=== PATIENT | female | born 1950 | race Caucasian/White ===

== ENCOUNTER 2021-11-06 12:08 | Outpatient (CLI) | payer OTHER, SELFPAY ==
--- NOTE | ~2021-11-06 | XR_ITS ---
XR ankle RT min 3V DATE: 11/06/2021 12:32 INDICATION: Displaced fracture of lateral malleolus TECHNIQUE: 4 views COMPARISON: 09/24/2021 right ankle FINDINGS: Small likely old or subacute cortical avulsion fracture fragments at the tip of the lateral malleolus versus ununited accessory ossification centers. No recent fracture or dislocation of the ankle or disruption of the ankle mortise is detected. Prominent plantar and posterior calcaneal enthesopathy without associated erosive change or periostit is. IMPRESSION: Probable subacute or old small cortical avulsion fracture tip of lateral malleolus Reviewed, dictated and finalized at location A. IMPRESSION: Probable subacute or old small cortical avulsion fracture tip of la teral malleolus
== END 2021-11-06 12:09 | disposition home or self-care (01) ==
LOC: ANHIMG 12:18
PROVIDERS: PCP Hospitalist; Visit Provider Orthopaedic Surgery
DX: S82.61XA Displaced fracture of lateral malleolus of right fibula, initial encounter for closed fracture (principal)
CPT/HCPCS: 73610

== ENCOUNTER 2023-10-06 09:27 | Outpatient (CLI) | payer MEDICARE, OTHER, SELFPAY ==
--- NOTE | 2023-10-06 09:30 | ECG_ITS ---
Test Date: 2023-10-06 09:54:33 Measurements Intervals [place] Rate: 81 P: 157 WI: 169 QRS: -8 QRSD: 122 T: -3 QT: 378 QTc: 441 Interpretive Statements ELECTRONIC ATRIAL PACEMAKER RIGHT BUNDLE BRANCH BLOCK [120+ ms QRS DURATION, UPRIGHT V1, 40+ ms S IN I/aVL/V4/V5/V6] No previous ECG available for comparison Electronically Signed On 10-06-2023 11:38:50 CDT by Tamia Bo M.D.
[2023-10-06 12:21] LABS: Anion Gap 7 mmol/L (4-12); Blood Urea Nitrogen 12 mg/dL (7-17); Carbon Dioxide 25 mmol/L (22-30); Chloride 104 mmol/L (98-107); Estimated Glomerular Filt Rate > 60; Glucose 198 mg/dL (65-110); Potassium 4.1 mmol/L (3.4-5.0); Sodium 136 mmol/L (137-145)
== END 2023-10-06 09:28 | disposition home or self-care (01) ==
LOC: ANHSURGERY 09:33
PROVIDERS: Anesthesiology; PCP Hospitalist; Visit Provider Orthopaedic Surgery
DX: E11.9 Type 2 diabetes mellitus without complications (principal); I10 Essential (primary) hypertension; Z01.818 Encounter for other preprocedural examination; I45.10 Unspecified right bundle-branch block
CPT/HCPCS: 36415; 80048; 93005

== ENCOUNTER 2023-10-11 00:48 | Day surgery (SDC) | payer MEDICARE, OTHER, SELFPAY ==
--- NOTE | 2023-10-04 10:40 | PC.NURSE ---
Report to the Outpatient Waiting Room, entrance under the green pavilion located off [facility], at time _12:30 PM on date __10/11/23 . Planned Procedure Time: _2:30 PM . Time changes happen often and if your time is changed the preop area will call you the afternoon before. - You and your visitor will be asked to self-screen and do not enter if you have any COVID symptoms. - A mask is optional within the hospital at this time. Patients may have clear liquids (water, carbonated beverages, clear teas, apple juice) until 3 hours prior to surgery(11:30 AM) with a maximum of 20 ounces. - No food from midnight until time of surgery - Infants may have breast milk until 4 hours before surgery, infant formula 6 hours prior to surgery. - Children will be allowed to drink immediately following surgery. If applicable, please bring a bottle or sippy cup to assist with drinking. Juice, water, soda, and popsicles are readily available. For infants on formula, please bring formula the day of surgery. Pacifiers are allowed. Take the following medications with a SIP of water the morning of surgery: CLONIDINE,DILTIAZEM DO NOT STOP ANY OF YOUR OTHER PRESCRIPTION MEDICATIONS PRIOR TO SURGERY ?EXCEPT THE FOLLOWING Medications to discontinue per physician __ALL VITAMINS AND SUPPLEMENTS 3 DAYS PRE OP ,LAST DOSE 10/07/23 ___XARELTO PER DR SHELL Please no make-up, nail tongan, hairspray, perfume, deodorant, or body powder the day of surgery. No jewelry (including any body piercings) or valuables the day of surgery, leave them at home. Please take a shower or bath the night before, or the morning of, surgery with an antibacterial soap. Wear comfortable, loose fitting clothing. Children are encouraged to wear pajamas. - Jewelry must be removed prior to entering the operating room. Rings and piercings that are not removed may be cut off. - The hospital will not accept responsibility for valuables. - Please leave all valuables, including medications, at home the day of surgery. If you are going home after surgery, a licensed truck driver flatbed must drive you home. - NO public transportation without another adult if you receive anesthesia. - We recommend that an adult stay with you for 24 hours following discharge. - We also recommend that you do not drive, make important decision, drink alcoholic beverages, or take any drugs that were not prescribed by your health care provider for at least 24 hours after your discharge time. Follow any additional instructions given to you from your surgeon. If you or anyone in your household have experienced Covid symptoms in the past week, please notify your surgeon or the nurse liaison at the phone number below for possible testing. Telephone instructions given to ___PATIENT and asked if any additional questions and then verbalized understanding. Patient advised to call surgeon office or pre surgery nurse liaison [phone] if any additional questions.
[2023-10-04 10:51] VITALS: BMI 26.4
[2023-10-11] VITALS (8 sets, daily range): BP systolic 115–139; BP diastolic 49–62; PULSE 80–83; RESP 11–16; TEMP 36.1; O2SAT 96–100
--- NOTE | 2023-10-11 11:41 | WPDHPUPDATE1 ---
History and Physical Update Update Date/Time: 10/11/23 11:41 History and Physical has been reviewed, including an updated exam of the patient. There are NO changes in the patient's condition. Risks, benefits, and alternatives have been discussed and questions answered. Patient agrees to proceed with procedure.
[2023-10-11] MEDS: LACTATED RINGERS 1,000 ML 30 ML IV CONT (13:17)
[2023-10-11] MEDS: ACETAMINOPHEN 500 MG TABLET 1000 MG PO (13:17)
[2023-10-11] MEDS: KETOROLAC 15 MG/ML VIAL (*BKC) IV PUSH (13:20)
[2023-10-11 13:44] LABS: Glucose Point of Care 162 mg/dl (65-105)
--- NOTE | 2023-10-11 14:00 | WPDANESEPPF ---
Anes - Initial Pre Proc Eval Procedure: Operation Date: 10/11/23 14:30 Proposed Procedures p Left Knee Arthroscopy, Partial Medial Meniscectomy - Jose E Cash MD Date/Time: 10/11/23 14:00 Surgeon: Jose E Cash MD Pre Op Diagnosis: left knee medial meniscus tear Patient Data Age: 73 Gender: F Height: 1.63 m Weight: 69.6 kg Last Vital Signs Temp 97 F L 10/11/23 12:52 Pulse 83 10/11/23 12:52 Resp 16 10/11/23 12:52 BP 126/59 L 10/11/23 12:52 Pulse Ox 99 10/11/23 12:52 O2 Del Method Room Air 10/11/23 12:52 Allergies Allergy/AdvReac Type Severity Reaction Status Date / Time loracarbef Allergy Unknown Gastrointestinal Verified 10/11/23 13:28 Upset AND HIVES Sulfa (Sulfonamide AdvReac Unknown Gastrointestinal Verified 10/11/23 12:49 Antibiotics) Upset Nzjzoxn-PRF-GcK Reductase AdvReac Muscle Pain Verified 10/11/23 12:49 Inhibitor Home Medications Medication Instructions Recorded Confirmed Type clonidine HCl 0.2 mg tablet 0.2 mg PO BID 08/27/21 10/04/23 History ezetimibe 10 mg tablet 10 mg PO DAILY 08/27/21 10/04/23 History glipizide 10 mg tablet 10 mg PO BID 08/27/21 10/04/23 History metformin 500 mg tablet 1,000 mg PO BID 08/27/21 10/04/23 History pantoprazole 40 mg tablet,delayed 40 mg PO QAM 08/27/21 10/04/23 History release rivaroxaban 20 mg tablet (Xarelto) 20 mg PO QPM 08/27/21 10/04/23 History semaglutide 0.25 mg or 0.5 mg (2 0.25 mg subcut WEEKLY 06/09/23 10/04/23 History mg/3 mL) subcutaneous pen injector (Ozempic) hydrocodone 5 mg-acetaminophen 325 1 - 2 tablet PO Q4-6H PRN pain #30 09/10/23 10/04/23 Rx mg tablet tabs cholecalciferol (vitamin D3) 50 50 mcg PO DAILY 10/04/23 10/04/23 History mcg (2,000 unit) capsule cyanocobalamin (vitamin B-12) 1,000 mcg PO DAILY 10/04/23 10/04/23 History 1,000 mcg tablet diltiazem HCl 90 mg tablet 90 mg PO TID 10/04/23 10/04/23 History magnesium 200 mg tablet 400 mg PO BID 10/04/23 10/04/23 History meclizine 25 mg tablet 25 mg PO BID PRN Dizziness 10/04/23 10/04/23 History metoclopramide HCl 5 mg tablet 5 mg PO PRN PRN Nausea 10/04/23 10/04/23 History Laboratory Tests 10/11/23 13:40 POC Capillary Glucose 162 H mg/dl (65-105) Patient hx anesthesia problems: none Family hx anesthesia problems: none Results Review: All pre-operative results and documents have been reviewed as part of the pre-operative evaluation. [facility] Past Medical History Medical History History of atrial flutter History of granuloma inguinale History of stress test (~2019) History of torn meniscus of right knee (~05/26/13) Surgical History Surgical History History of cholecystectomy (~1989) Family History Family History Other Diabetes mellitus Family history of cardiovascular disease Family history of malignant melanoma Family history of pancreatic cancer Social History Social History Smoking status: Never smoker Alcohol intake: never Do You Feel Safe in your Home?: Yes Lack of Transportation: No Lack of Food: Never True Current Housing: I Have Housing Concerned About Future Housing: No Difficulty Paying Gas/Electric Bills: No Difficulty Paying for Meds: YES Currently Unemployed: No Education: High School Diploma/GED Difficulty w/ Childcare or Family Care: No Living arrangements: with family Spiritual care concerns: No Anes - Eval Final PreProcedure Day of Procedure 10/11/23 14:00 Patient weight: normal Heart: regular rate and rhythm Lungs: clear to auscultation Airway: Mallampati scale class II Neurological: alert and oriented Last oral intake: >/= 8 hours ASA classification: III Emergent: no Anestheti
[2023-10-11] MEDS: ceFAZolin 2 GM/D5W 50 ML 2 GM/50 ML BAG IVPB (15:29)
[2023-10-11] MEDS: BUPIVACAINE/EPINEPHRINE 0.5% 10 ML VIAL 20 ML INFILTRATE (16:06)
[2023-10-11 16:24] LABS: Glucose Point of Care 147 mg/dl (65-105)
[2023-10-11] MEDS: oxyCODONE HCL (*CRX) 5 MG TAB IR PO (17:35)
--- NOTE | 2023-10-12 13:41 | P.OP_ITS ---
Procedure Note - Detailed Date of Procedure 10/11/23 Pre-op Diagnosis Left knee medial meniscus tear Post-op Diagnosis Same Procedure Performed Arthroscopic partial medial meniscectomy, left knee. Surgeon Jose E Cash MD Anesthesia General Findings Complex extensive tearing of the medial meniscus posterior horn and medial aspect. 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 Lateral compartment fairly benign. 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 Description of Procedure The patient was identified and the surgical site confirmed and signed in the preoperative holding area. Antibiotics were started per protocol, and the patient was brought to the operative room and transferred to the OR table. A general anesthetic was administered. Supine position with the operative lower extremity position in the leg rosario after placement of a well padded tourniquet. The leg support was lowered and the contralateral limb was supported with a soft bolster. The knee was prepped and draped in the usual sterile fas hion. A time-out was performed. The portal sites were marked and infiltrated with 0.5% Marcaine 20 mL. The limb was exsanguinated and the tourniquet inflated to 300 mL Hg. Standard inferolateral and inferomedial portals were established. Inflow was obtained with the saline pump. The camera was introduced. Diagnostic inspection of the joint was accomplished. The meniscus was debrided with the arthroscopic shaver and punches until stable. Slight chondroplasty in the medial femoral condyle and lateral patella was performed. The arthroscopic instruments were removed. The tourniquet released and wounds closed with subcutaneous 4-0 Monocryl absorbable suture. Steri strips and a sterile dressing were applied. A light elastic wrap was placed. The patient was extubated and brought to the recovery room in stable condition. Estimated Blood Loss 5 Drains No Complications No immediate complications Condition Stable Disposition PACU [facility] Billing Surgery - Charge Forward: Surgery Billing
== END 2023-10-11 18:40 | disposition home or self-care (01) ==
PROVIDERS: PCP Hospitalist; Visit Provider Orthopaedic Surgery
PROC: (CPT 29870; principal; 2023-10-11 14:30)
DX: M23.322 Other meniscus derangements, posterior horn of medial meniscus, left knee (principal); M22.42 Chondromalacia patellae, left knee; M17.12 Unilateral primary osteoarthritis, left knee; Z79.84 Long term (current) use of oral hypoglycemic drugs; Z79.01 Long term (current) use of anticoagulants; Z79.85 Long-term (current) use of injectable non-insulin antidiabetic drugs
CPT/HCPCS: 29881; 82948; A9270; J0171; J0330; J0690; J1100; J1885; J2405; J2704; J3010; J7120

== ENCOUNTER 2025-01-15 11:53 | Outpatient (CLI) | payer MEDICARE, OTHER, SELFPAY ==
--- NOTE | ~2025-01-15 | XR_ITS ---
EXAMINATION: XR knee RT min 4V, 01/15/2025 12:00 CDT HISTORY: M17.11 - Unilateral primary osteoarthritis, right knee COMPARISON: No comparisons available. Findings: No acute fracture or malalignment. Moderate tricompartmental degenerative changes Soft tissues unremarkable. Impression: No acute fracture or malalignment. Reviewed, dictated and finalized at location A. Impression: No acute fracture or malalignment.
--- OUTSIDE RECORDS SUMMARY | 2025-01-15 12:47 | XMS_ITS | Encounter Summary ---
Author Organization [facility] Healthcare Address [address] [place] [address] Care Team Providers Care Head Waiter/Waitress Name Role Phone Cyndee Lee MD Unavailable [phone] Deejay Cuellar MD Unavailable [phone] Tyler Esparza DO Unavailable [phone] Demarcus Beckett MD Unavailable [phone] Fabien Gayle MD Primary Care Provider [phone] Christopher Fontana MD Unavailable [phone] Mana Ma MD Unavailable [phone] Encounter Details Date Type Department Care Team (Late st Contact Info) Description 11/16/2024 Results Follow-Up [facility] [address] [place] [id number] Fabien Gayle MD [address] [place] [address] MRI Shoulder Right WO Contrast Social History Tobacco Use Types Packs/Day Years Used Date Smoking Tobacco: Never Smokeless Tobacco: Never Alcohol Use Standard Drinks/Week Comments No 0 (1 standard drink = 0.6 oz pur e alcohol) AUDIT-C Answer Date Recorded Q1: How often do you have a drink containing alcohol? Never 07/31/2024 Q2: How many drinks containi ng alcohol do you have on a typical day when you are drinking? Patient does not drink Q3: How often do you have si x or more drinks on one occasion? Never 07/31/2024 PHQ-2 Answer Date Recorded PHQ-2 Total Score (If total score is 3 or more points, staff should administer the PHQ-9) 0 02/16/2024 Personal Safety Answer Date Recorded Have you ever been in or are you currently in a harmful physical or emotional relationship or is someone making you feel afraid or unsafe? 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 Not on file Not on file Not on file documented as of this encounter Plan of Treatment Not on file documented as of this encounter Visit Diagnoses Not on filedocumented in this encounter Care Teams Head Waiter/Waitress Relationship Specialty Start Date End Date Fabien Gayle MD [address] [place] [address] PCP - General Family Medicine 01/23/22 Cyndee Lee MD Consulting Physician Gastroenterology 08/18/17 Deejay Cuellar MD [address] [place] [address] DR SANCHEZ [address] [place], [place] [address], [place] [address] Melt House Drag Operator Obstetrics and Gynecology 11/15/19 Tyler Esparza DO [address] [place] [address] Medical Oncologist/Hematologis t Hematology and Oncology 06/10/20 Demarcus Beckett MD [address] [place] [address] [place] [id number] Surgeon Surgery 09/25/21 Christopher Fontana MD [address] [address] Surgeon General Surgery 10/01/22 [place] [address] [place] [address] Radiation Oncologist Radiation Oncology 08/24/23 documented as of this encounter
--- OUTSIDE RECORDS SUMMARY | 2025-01-15 12:47 | XMS_ITS | Encounter Summary ---
Author Organization [facility] Healthcare Address [address] [place] [address] Care Team Providers Care Asp Net Mvc Developer Name Role Phone Cyndee Lee MD Unavailable [phone] Deejay Cuellar MD Unavailable [phone] Tyler Esparza DO Unavailable [phone] Fabien Gayle MD Primary Care Provider [phone] Mana Ma MD Unavailable [phone] Demarcus Beckett MD Unavailable [phone] Bethany Hunter MD Primary Care Provider [phone] Fabien Gayle MD Primary Care Provider [phone] Christopher Fontana MD Unavailable [phone] Mana Ma MD Unavailable [phone] Encounter Details Date Type Department Care Team (Late st Contact Info) Description 09/02/2020 Telephone [facility] [address] [place] [id number] Yadira Osborn, RT Social History Tobacco Use Types Packs/Day Years Used Date Smoking Tobacco: Never Smokeless Tobacco: Never Alcohol Use Standard Drinks/Week Comments No 0 (1 standard drink = 0.6 oz pur e alcohol) PHQ-2 Answer Date Recorded PHQ-2 Total Score (If total score is 3 or more points, staff should administer the PHQ-9) 0 08/19/2020 Comments No Sex and Gender Information Value Date Recorded Sex Assigned at Not on file 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 Gender Identity Not on file Sexual Orientation Not on file 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 Not on file Not on file Not on file documented as of this encounter Plan of Treatment Not on file documented as of this encounter Visit Diagnoses Not on filedocumented in this encounter Additional Health Concerns Infection Onset Date Last Indicated Resolved Time COVID: Suspected 08/16/2022 08/16/2022 08/16/2022 3:30 PM CDT documented as of this encounter Care Teams Asp Net Mvc Developer Relationship Specialty Start Date End Date Fabien Gayle MD [address] [place] [address] PCP - General Family Medicine 08/19/20 01/11/22 [place] [address] [address] PCP - General 01/12/22 01/22/22 Fabien Gayle MD [address] [place] [address] PCP - General Family Medicine 01/23/22 Cyndee Lee MD Consulting Physician Gastroenterology 08/18/17 Deejay Cuellar MD [address] [place] [address] DR SANCHEZ [facility] [place] [address] Gate Agent Obstetrics and Gynecology 11/15/19 Tyler Esparza DO [address] [place] [address] Medical Oncologist/Hematologis t Hematology and Oncology 06/10/20 Mana Ma MD [address] [place] [address] Radiation Oncologist Radiation Oncology 09/25/21 Demarcus Beckett MD [address] [place] [id number] Surgeon Surgery 09/25/21 Christopher Fontana MD [address] [place] [address] [id number] Surgeon General Surgery 10/01/22 [place] [address] [place] [address] Radiation Oncologist Radiation Oncology 08/24/23 documented as of this encounter
--- OUTSIDE RECORDS SUMMARY | 2025-01-15 12:47 | XMS_ITS | Clinical Summary ---
Author Organization [facility] Address [address] [place] [address] Care Team Providers Care Pile Header Name Role Phone Fabien Gayle MD Primary Care Provider [phone] Allergies Active Allergy Reactions Criticality Noted Date Comments Atorvastatin Myalgias High 07/01/2017 Lisinopril Cough Medium 07/01/2017 Loracarbef Nausea Only,Other (s ee comment) High 12/27/2013 Abdominal pain Metformin Unknown 2018 Simvastatin Myalgias High 07/01/2017 Statins Myalgias High 06/24/2015 Sulfa Antibiotics Shortness of Breath High 8 Medications metFORMIN ER 500 MG 24 hr tablet TAKE 2 TABLET BY MOUTH TWICE A DAY AFTER BREAKFAST AND DINNER NEED TO MAKE APPT 1 Active JANUVIA 100 MG tablet Take 100 mg by mouth daily. 1 Active glipiZIDE XL 10 MG 24 hr tablet Take 10 mg by mouth 2 (two) times daily. 1 Active ezetimibe 10 MG tablet Take 10 mg by mouth daily. 1 Active pantoprazole EC 40 MG tablet Take 40 mg by mouth daily. 1 Active vitamin C 1000 MG tablet Take 1,000 mg by mouth daily. 1 Active cloNIDine 0.2 MG tablet Take 0.2 mg by mouth 2 (two) times daily. 1 Active Cyanocobalamin 100 MCG Tab Take 100 mcg by mouth daily. Active XARELTO 20 MG Tab tablet TAKE 1 TABLET BY MOUTH EVERY DAY WITH SUPPER 1 Active hydroCHLOROthia zide 25 MG tablet Take 25 mg by mouth daily. 1 Active ONETOUCH ULTRA test strip USE TO TEST BLOOD SUGAR 2 TIMES DAILY 1 Active triamcinolone 0.1 % ointment APPLY TOPICALLY TO AFFECTED AREA TWICE A DAY WITH FLARE UPS 1 Active vitamin D3, cholecalciferol , (CHOLECALCIFERO L) 5000 UNITS capsule Take 5,000 Units by mouth daily. Active dilTIAZem CD 180 MG 24 hr capsule Take 1 capsule (180 mg total) by mouth daily. 30 capsule 6 1 Active Active Problems Problem Noted Date Diagnosed Date Atrial flutter ([facility]) 10/22/2020 Hypertension Breast cancer ([facility]) Overview (12/18/2020): left Immunizations Immunization Administration Dates Next Due Fluzone High Dose - >Age 65 (Prefilled Syringe) 01/19/2020,02/19/2018,05/25/2017 Influenza (Generic) 05/27/2017,01/19/2013,2010 Influenza Adult (Generic) 02/10/2019,02/20/2018 Pneumococcal (Pneumovax 23) 01/19/2020, 1 Pneumococcal (Prevnar 13) 04/24/2015 Shingrix 10/28/2019,06/13/2019 Tdap (Generic) 02/10/2019 Family History Medical History Relation Comments Heart Attack Brother Open Heart Brother Heart Attack Father Heart Attack Maternal Grandfather Heart Attack Paternal Grandfather Coronary artery disease Sister 1 atrial fibrillation Sister 1 Relation Status Comments Brother (Age 53) Father (Age 55) Maternal Grandfather (Age 60) Maternal Grandmother (Age 91) Mother (Age 74) Paternal Grandfather (Age 75) Paternal Grandmother (Age 87) Sister 1 Alive Sister 2 Alive Social History Tobacco Use Types Packs/Day Years Used Date Smoking Tobacco: Never Smokeless Tobacco: Never Alcohol Use Standard Drinks/Week Comments Never 0 (1 standard drink = 0.6 oz pur e alcohol) Comments Unknown Sex and Gender Information Value Date Recorded Sex Assigned at Not on file Legal Sex Female 10:18 AM CDT Gender Identity Not on file Sexual Orientation Not on file Last Filed Vital Signs Vital Sign Reading Time Taken Comments Blood Pressure 124/80 12/23/2020 10:39 AM CDT Pulse 75 12/23/2020 10:39 AM CDT Temperature - - Respiratory Rate - - Oxygen Saturation 98% 12/23/2020 10:39 AM CDT Inhaled Oxygen Concentration - - Weight 77.6 kg (171 lb) 12/23/2020 10:39 AM CDT Height 160 cm (5' 3) 12/23/2020 10:39 AM CDT Body Mass Index 30.29 12/23/2020 10:39 AM CDT Plan of Treatment Health Maintenance Due Date Last Done Comments Colorectal Cancer Screening Colonoscopy (10 Years) 1950 Hepatitis C 02/24/1968 Mammogram Screening 1990 RSV Immunization or 60+ Years (1 - Risk 60-74 years 1-dose series) 2010 Dexa Scan (General) 2015 COVID-19 Vaccine (3 - 2024-2 6 season) 2024 07/03/2020, 06/12/2020 DTaP, Tdap and Td Vaccines ( 2 - Td or Tdap) 02/10/2029 02/10/2019 Zoster Vaccines Completed 10/28/2019, 06/13/2019 Pneumococcal Vaccine: 50+ Years Completed 01/19/2020, 04/24/2015, 02/18/2011 Meningococcal B Vaccine Aged Out No l onger eligible based on patient's age to complete this topic Meningococcal Vaccine Aged Out No demetrice edith eligible based on patient's age to complete this topic RSV Immunizations Under 20 Months Aged Out No longer eligible b ased on patient's age to complete this topic Insurance [facility] Care Teams Pile Header Relationship Specialty Start Date End Date Fabien Gayle MD [address] [place] [address] PCP - General FAMILY PRACTICE 11/11/20
--- OUTSIDE RECORDS SUMMARY | 2025-01-15 12:47 | XMS_ITS | Clinical Summary ---
Author Organization [facility] Address [address] [place] [address] Care Team Providers Care Collections Manager Name Role Phone Cyndee Lee MD Unavailable [phone] Deejay Cuellar MD Unavailable [phone] Tyler Esparza DO Unavailable [phone] Demarcus Beckett MD Unavailable [phone] Fabien Gayle MD Primary Care Provider [phone] Christopher Fontana MD Unavailable [phone] Mana Ma MD Unavailable [phone] Allergies Active Allergy Reactions Criticality Noted Date Comments Atorvastatin Muscle pain High 07/01/2017 Empagliflozin Unknown High 06/28/2024 Alendronate Shortness of breath High 06/05/2022 Lisinopril Cough Medium 07/01/2017 Loracarbef Hives,Nausea only High 12/27/2013 Pravastatin Muscle pain High 07/01/2017 Risedronate Other (See comments) Medium 02/12/2022 Sore throat and mouth sores Simvastatin Muscle pain High 07/01/2017 Sulfa (Sulfonamide Antibiotics) Shortness of breath High 05/19/2017 Medications cholecalciferol (VITAMIN D-3) 5,000 unit capsuleIndicatio ns:Vitamin D Deficiency Take 1 capsule (5,000 Units total) by mouth every morning Active cyanocobalamin (Vitamin B-12) 100 mcg tabletIndication s:Prevention of Vitamin B12 Deficiency Take 1 tablet (100 mcg total) by mouth every morning Active magnesium oxide 400 mg magnesium tabletIndication s:hypomagnesemia Take 1 tablet by mouth 2 (two) times a day 1 Active hyoscyamine (LEVSIN) 0.125 mg SL tabletIndication s:Urinary Incontinence Take 1 tablet (0.125 mg total) by mouth every 6 (six) hours as needed for cramping or diarrhea Dissolve tab under the tongue 100 tablet 6 3 Active multivitamin combination no.56 tablet,chewableI ndications:Vitam in Deficiency Prevention Take 1 tablet by mouth every morning 0 Active triamcinolone (KENALOG) 0.1 % ointment APPLY TOPICALLY 2 TIMES A DAY NEEDED FOR IRRITATION OR RASH 60 g 5 3 Active estradioL (ESTRACE) 0.01 % (0.1 mg/gram) vaginal creamIndications :Urinary urgency,Vaginal dryness, menopausal Apply one (1) gram in the vagina nightly for two (2) weeks, then two to three (2-3) times per week. 42.5 g 2 3 Active Additional Information Patient taking differently: vaginal 2 times weekly, Apply one (1) gram in the vagina nightly for two (2) weeks, then two to three (2-3) times per week.,Indications: Atrophy of Vulva, Informant: Self, Reported on 08/30/2024 inclisiran (Leqvio) 284 mg/1.5 mL syringeIndicatio ns:hypercholeste rolemia Inject 1.5 mL (284 mg total) under the skin every 6 (six) months Active cloNIDine (CATAPRES) 0.2 mg tabletIndication s:hypertension Take 1 tablet (0.2 mg total) by mouth 2 (two) times a day 3 Active rivaroxaban (XARELTO) 20 mg tabletIndication s:atrial fibrillation Take 1 tablet (20 mg total) by mouth daily with dinner 4 Active HYDROcodone-acet aminophen (NORCO) 5-325 mg per tabletIndication s:Pain Take 1 tablet by mouth every 6 (six) hours as needed for pain (breakthrough pain) 15 tablet 4 Active dilTIAZem (CARDIZEM) 90 mg tablet Take 1 tablet (90 mg total) by mouth 3 (three) times a day 4 Active metoclopramide (REGLAN) 5 mg tablet TAKE 1 TABLET BY MOUTH 4 TIMES A DAY. 360 tablet 1 4 Active metFORMIN XR (GLUCOPHAGE XR) 500 mg 24 hr tabletIndication s:Type 2 diabetes mellitus with hyperglycemia, without long-term current use of insulin (HCC) Take 2 tablets (1,000 mg total) by mouth 2 (two) times a day 360 tablet 3 4 Active semaglutide (Ozempic) 0.25 mg or 0.5 mg(2 mg/1.5 mL) pen injector injection Inject under the skin Active glipiZIDE XL (GLUCOTROL XL) 10 mg 24 hr tabletIndication s:Type 2 diabetes mellitus with hyperglycemia, without long-term current use of insulin (HCC) Take 1 tablet by mouth twice daily [address] (PROTONIX) 40 mg EC tabletIndication s:Gastro-esophag eal reflux disease without esophagitis Take 1 tablet (40 mg total) by mouth 2 (two) times a day 180 tablet 1 5 Active Active Problems Problem Noted Date Diagnosed Date Bronchitis 09/25/2023 Assessment & Plan (09/25/2023 9:56 AM CDT): Use of inhalers as discussed Increase oral fluids Saline nasal spray and gargles Medication as prescribed Tylenol or ibuprofen as needed Avoid smoking/second-hand smoke exposure Plenty of rest Good handwashing Cover cough with tissue or elbow Follow up if symptoms are not improving in 2-3 days, sooner if worsening Benign paroxysmal positional vertigo of right ea r 06/22/2023 Dysfunction of right eustachian tube 05/12/2023 Mixed conductive and sensori neural hearing loss of right ear with restricted hearing of left ear 05/12/2023 Pacemaker 02/05/2023 Assessment & Plan (02/05/2023 3:21 PM CDT): - s/p pacemaker placement - denies any palpitations - continue f/u with cardiology Personal history of radiation therapy 09/25/2021 Sensorineural hearing loss ( SNHL) of left ear with restricted hearing of right ear 05/21/2021 Assessment & Plan (02/17/2024 1:29 PM CDT): Continues to have some loss of hearing; some advancement of disease Would recommend follow up with audiology Osteopenia of multiple sites 12/24/2020 Assessment & Plan (02/05/2023 3:24 PM CDT): - encouraged regular weight bearing exercise and/or weight training. - taking vit D supplements Assessment & Plan (03/01/2022 10:25 AM TUNNEL HEADING INSPECTOR): Cannot tolerate bisphosphonate; encouraged regular activity and exercise, given guidance on calcium and vitamin-D targets daily Assessment & Plan (08/27/2021 5:07 PM CDT): Stable, generally well controlled; patient is on Femara for breast cancer Continue alendronate 70 mg weekly, calcium and vitamin-D supplementation Assessment & Plan (04/29/2021 12:43 PM TUNNEL HEADING INSPECTOR): Patient has known osteopenia, currently on Humira; concern for continued bone loss Start alendronate 70 mg weekly Calcium and vitamin-D supplementation Assessment & Plan (12/24/2020 11:31 AM CDT): Based on recent DEXA scan, patient has decreased bone density with elevated risk of fracture; the below requirements for osteoporosis Encouraged patient to continue with vitamin-D supplement and target of 1000 mg of calcium per day either through supplement or diet Patient to follow-up with Oncology to evaluate if patient needs treatment for osteoporosis if patient were to start tamoxifen therapy Atrial flutter 10/22/2020 Assessment & Plan (09/10/2024 8:54 PM CDT): Stable, regular rate and rhythm Continue Xarelto 20 mg daily, diltiazem 90 mg t.i.d. Assessment & Plan (09/25/2023 9:56 AM CDT): Stable. Continue Xarelto 20 mg daily. RRR per auscultation during exam. Assessment & Plan (08/26/2023 3:30 PM CDT): Stable, well controlled; rate controlled, pacemaker in place Continue rivaroxaban 20 mg daily; as patient is on blood thinner, would not recommend ASA due to increased risk of bleeding Malignant neoplasm of upper- inner quadrant of left female breast 03/29/2020 Cancer Staging:Clinical stage from 07/05/2020:Stage IA(cT1b, cN0(sn), cM0, G1, ER+, PA+, HER2-) - Signed by Tyler Esparza DO on 07/06/2020 Overview (03/29/2020): Diagnosed 04-14 Lymph node biopsy negative Family history of ovarian cancer, and breast cancer in sister -possible evaluation by genetics for familial genes Assessment & Plan (02/17/2024 1:29 PM CDT): Stable, no evidence of further disease; patient did not tolerate medications; will continue to monitor Assessment & Plan (12/24/2020 11:30 AM CDT): Stable, patient currently holding anastrozole due to SVT, may change to tamoxifen based upon recommendation by Oncology Will continue to follow with Oncology recommendations Assessment & Plan (03/29/2020 9:48 AM TUNNEL HEADING INSPECTOR): Patient has follow-up scheduled for lumpectomy and radiation therapy at [facility] Rectocele 02/14/2020 RBBB 01/24/2020 Right chronic serous otitis media 12/20/2019 Imbalance 12/20/2019 Assessment & Plan (09/29/2021 4:21 PM CDT): Patient follow-up from recent fall; patient recently started on cardiac medicine, which patient to have episode of syncope, decreased vision Include recently fully loss conscious, S patient reports she is aware of surroundings and sounds Patient now has some tailbone pain, is lungs tenderness and had an bruising No evidence of subdural hematoma or other fractures related to osteoporosis; continue with general pain management PMB (postmenopausal bleeding) 11/02/2019 Overview (01/19/2020): Added automatically from request for surgery [id number] Resolved : had D&C Uterine polyp 11/02/2019 Overview (11/02/2019): Added automatically from request for surgery [id number] Atherosclerosis of aorta (CMS/HCC) 09/08/2019 Assessment & Plan (02/17/2024 1:28 PM CDT): Stable, well controlled; no chest pain or pressure; no major issues at this time Continue with appropriate blood pressure and lipid control Assessment & Plan (02/05/2023 3:20 PM CDT): - continue both ezetimibe and LeQvio Assessment & Plan (12/24/2020 11:28 AM CDT): Stable, no current episodes of angina Will continue to monitor and follow; patient follows regularly with Cardiology Assessment & Plan (09/08/2019 9:50 AM CDT): Incidental finding on CT Abd/Pelvis 07/2017 Intolerant of statin. Lower abdominal pain 09/08/2019 Assessment & Plan (06/08/2022 2:43 PM TUNNEL HEADING INSPECTOR): Frit tid, levsinSL in am ands prn. Return prn Assessment & Plan (12/31/2020 3:18 PM CDT): Levsin SL prn and colonoscopy 2021 and increased fruit Assessment & Plan (09/08/2019 4:52 PM CDT): Onset mid-July Initially treated with cipro for UTI, but symptoms did not improve On day 4/7 of macrobid, and symptoms have improved, but still very much present. Not resolved. Reviewed Pelvis US results with patient from 03/2019 She does have a history of pyelonephritis in July 2017 Currently with no flank pain, fever, general malaise, or N/V Recommend continue Abx thru the weekend. 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 12/29/2018 Assessment & Plan (09/08/2022 5:28 PM CDT): Continues to have symptoms of dysuria and increased frequency with incomplete emptying Recent UA positive for WBCs, and bacteria Will send for Levaquin, Pyridium and fluconazole Assessment & Plan (12/29/2018 3:39 PM CDT): - Hx of urinary frequency 12/29/2018 Assessment & Plan (03/30/2019 11:28 AM TUNNEL HEADING INSPECTOR): -UA dip in office was WNL Continue with ERT for urethral atrophy F/u 1 year Assessment & Plan (12/29/2018 3:47 PM CDT): -suspect pelvic floor weakness and presence of cystocele causing urinary issues -UA today negative, do not suspect d/t infection present -start vaginal estrogen inserts, samples given Cystocele, midline 12/29/2018 Assessment & Plan (12/29/2018 3:45 PM CDT): -discussed options for treatment -pessary, PT, surgery consult -referral for surgeon given Duodenitis 08/17/2017 Assessment & Plan (04/29/2021 12:42 PM TUNNEL HEADING INSPECTOR): Stable, not well controlled; patient has history of duodenal ulcer; continues to have pain is similar region Will give trial of Carafate 1 g q.i.d. dosing for treatment; follow-up in 1 month for response to therapy Assessment & Plan (08/25/2017 7:58 AM CDT): Improving: Continue Protonix for 3 months and keep follow-up with GI in 1 month. Office visit took 45 min. Renal stone 08/17/2017 Assessment & Plan (08/24/2017 12:23 PM CDT): Right 2 mm kidney stone right kidney newly discovered during hospitalization: Follow-up with Urology. Statin intolerance 05/19/2017 Assessment & Plan (09/11/2020 1:17 PM CDT): Continue on Zetia for dyslipidemia Assessment & Plan (08/23/2018 4:05 PM CDT): No current issues Angina pectoris 06/24/2015 Assessment & Plan (08/26/2023 3:30 PM CDT): Stable, well controlled; no chest pain, no change in exercise tolerance Continue to monitor Assessment & Plan (11/25/2019 9:34 AM CDT): ASA, cardiology consult given recent work up and continued symptoms Arteriosclerosis of coronary artery 02/13/2014 Assessment & Plan (02/17/2024 1:28 PM CDT): Stable, well controlled; no chest pain; no change in exercise tolerance Continue appropriate blood pressure and lipid control Assessment & Plan (03/01/2022 10:24 AM TUNNEL HEADING INSPECTOR): Stable, follows with Cardiology for evaluation management Continue Zetia 10 mg daily as does not tolerate statin therapy Gastroesophageal reflux disease without esophagi tis 09/09/2013 Overview (01/19/2020): Secondary to metformin Assessment & Plan (09/10/2024 8:53 PM CDT): Stable, generally well controlled; no major issues at this time Continue pantoprazole 40 mg b.i.d. Assessment & Plan (09/25/2023 9:49 AM CDT): Asymptomatic. Continue pantoprazole 40 mg daily Assessment & Plan (08/26/2023 3:29 PM CDT): Stable, well controlled; symptoms are secondary to metformin Continue pantoprazole 40 mg q.d. Assessment & Plan (02/05/2023 3:23 PM CDT): - some increase in dyspepsia after starting ozempic. This is improving over time. - will continue pantoprazole Every day and monitor symptoms. Assessment & Plan (04/29/2021 12:42 PM TUNNEL HEADING INSPECTOR): Stable, continue pantoprazole 40 mg daily Assessment & Plan (12/24/2020 11:29 AM CDT): Stable, well controlled with pantoprazole 40 mg daily Secondary to metformin use Assessment & Plan (01/19/2020 2:54 PM CDT): Stable well controlled continue PPI Assessment & Plan (09/08/2019 10:07 AM CDT): Has tried to stop the PPI, but the reflux got worse. Assessment & Plan (08/23/2018 4:04 PM CDT): Stable she is not having any new symptoms Type 2 diabetes mellitus wit h hyperglycemia, without long-term current use of insulin 09/09/2013 Assessment & Plan (09/10/2024 8:53 PM CDT): Not well controlled, A1c mildly elevated; recent increase Unable to tolerate Ozempic secondary to side effects Continue metformin a 1000 mg b.i.d., glipizide 10 mg b.i.d.; encourage low carbohydrate diet Assessment & Plan (02/17/2024 1:28 PM CDT): Stable, well controlled, A1c near goal Was not able to tolerate Ozempic, continues to work on dietary changes, focusing on smaller meals Continue glipizide 10 mg b.I.d., metformin 1000 mg b.I.d. Assessment & Plan (12/30/2023 12:45 PM CDT): Chronic, uncontrolled slight worsening from previous A1c 7.5% Overall still fairly controlled for patient's age and comorbidities Advised to continue current dose of metformin, glipizide Advised to increase Ozempic to 0.5 mg subQ weekly Counseled on diet and exercise Patient had done a dilated eye exam this year Advised patient to try to obtain a copy for us Assessment & Plan (09/25/2023 9:52 AM CDT): Discussed effects of prednisone on diabetes. She will check her blood sugar more frequently and watch her diet closer while taking it. Continue present medications. Managed by endocrinology. Assessment & Plan (08/26/2023 3:28 PM CDT): Stable, generally well controlled; last A1c at 7.3, mildly elevated Continue tirzepatide 5 mg Q weekly, metformin 1000 mg b.i.d., glipizide 10 mg b.i.d. Assessment & Plan (08/04/2023 12:39 PM CDT): Chronic problem, improving. She will apply for PAP for Ozempic to see if she qualifies, she has a donut hole plan for her insurance so relies on samples of GLP1a when she can get them. I gave her Ozempic today, recommended she try just 0.25 mg weekly if helps regulate her sugars so it will last longer. Assessment & Plan (05/09/2023 6:40 PM TUNNEL HEADING INSPECTOR): Chronic, uncontrolled worsening A1c 9.4 % Counseled on diet and exercise [facility] Than start taking Mounjaro 2.5 mg SQ weekly for 4 weeks than increase to 5 mg SQ weekly Labs soon at [facility] Schedule for diabetic eye exam as soon as possible Assessment & Plan (02/05/2023 3:22 PM CDT): A1c 9.4 1 months ago, she was started on ozempic. - continue januvia and matformin along w ozempic. Will plan A1C recheck in 2-3 months. Assessment & Plan (12/30/2022 1:45 PM CDT): Chronic, uncontrolled, worsening A1c 9.4% Stop Januvia - start ozempic 0.25 mg SQ weekly for 4 weeks than increase to 0.5 mg SQ weekly ( gave samples ) Keep taking metformin and glipizide - advise to cut back on glipizide if having low blood sugars Assessment & Plan (09/08/2022 5:27 PM CDT): Not well controlled, last A1c was 8.1, above target; home blood sugars running over 200 Follows with Endocrinology, working on dietary changes, eats some carbs during meals trying to avoid sweets and eating smaller portions Continue glipizide 10 mg daily, Januvia 100 mg daily, metformin 1000 mg b.i.d., Assessment & Plan (06/24/2022 10:33 AM TUNNEL HEADING INSPECTOR): Chronic, uncontrolled, worsening Frequent steroid knee injections A1c 8.1% - patient [id number] cost for Januvia is very high as well as GLP 1 agonist - patient is currently on samples for Januvia - continue current dose of metformin, glipizide, Januvia - patient do not want to go on insulin at this time - advised to avoid unhealthy bedtime snacking - portion control on her carbs increase physical activity - advised to include a aerobic exercises like water aerobics and also include muscle training exercise - follow-up in 3 months Assessment & Plan (03/22/2022 6:05 PM TUNNEL HEADING INSPECTOR): Chronic, uncontrolled, unchanged HbA1c - 7.8 % Pt denies hypoglycemia counseled on diet and exercise - continue current Medications - keep checking blood sugars - keep up with good hydration - advised to make an eye exam appointment soon - daily foot care - follow up in 3 months with Blood sugars log Assessment & Plan (03/01/2022 10:24 AM TUNNEL HEADING INSPECTOR): Stable, fairly well controlled, though has elevated A1c at 7.8 Continue Januvia 100 mg daily, metformin 1000 mg b.i.d., glipizide 10 mg b.i.d. Assessment & Plan (11/18/2021 11:34 AM CDT): Chronic, uncontrolled, worsening HbA1c - 7.8 % Pt denies hypoglycemia counseled on diet and exercise - continue current Medications - discussed alternate options to Januvia to consider in future Pt will check with her insurance plan and let me know - keep checking blood sugars - keep up with good hydration - advised to make an eye exam appointment soon - daily foot care - follow up in 3 months with Blood sugars log Assessment & Plan (08/27/2021 5:06 PM CDT): Stable, well controlled; A1c at target of 7.1 Continue Januvia 100 mg daily, metformin 1000 mg b.i.d., glipizide 10 mg b.i.d. Assessment & Plan (05/21/2021 11:14 AM TUNNEL HEADING INSPECTOR): Chronic, Overall well controlled for pt age HbA1c - 7.1 % Pt denies hypoglycemia - continue current medications - keep checking blood sugars - counseled on diet and exercise - keep up with good hydration - advised to make an eye exam appointment soon - daily foot care - follow up in 6 months with Blood sugars log Assessment & Plan (04/29/2021 12:41 PM TUNNEL HEADING INSPECTOR): Stable well controlled; A1c today is 7.1 Patient follows with endocrinology Continue glipizide 10 mg daily, metformin 1000 mg b.i.d., Januvia 100 mg daily Assessment & Plan (12/24/2020 11:29 AM CDT): Patient follows with endocrinology Continue glipizide 10 mg, metformin 1000 mg, b.i.d., Januvia 100 mg daily Patient A1c improved to 7.1, however patient reports that she has recently been having poor diet and eating high carbohydrate foods; concerned that her blood sugars have been increasing Will continue to monitor and follow with Endocrinology recommendations Encouraged low-carbohydrate diet Assessment & Plan (09/11/2020 1:16 PM CDT): Stable, well controlled Continue glipizide 10 mg, metformin 500 mg 20 hour tablet, Januvia A1c is at target Assessment & Plan (08/18/2020 9:42 AM CDT): Chronic, uncontrolled, improving HbA1c - 7.1 % Strongly advised to work back on portion, carb controlled diet Increase physical activity as tolerated - work on stress management - patient refused to be on any injectable medications and she has intolerance to lot other medications in past - continue current medications - keep checking blood sugars - keep up with good hydration - follow up in 3 months with Blood sugars log Assessment & Plan (06/04/2020 2:02 PM TUNNEL HEADING INSPECTOR): Has been up and down, will continue to limit carbohydrates Assessment & Plan (03/29/2020 9:42 AM TUNNEL HEADING INSPECTOR): Worsening, not well controlled Patient has multiple health concerns at this time including treatment for breast cancer and cystitis Patient has not been following blood sugars as frequently she could and has increased carbohydrate intake for stress ED Encouraged patient to monitor carbohydrate intake for better blood sugar control Assessment & Plan (02/15/2020 3:16 PM CDT): Chronic, uncontrolled, improving HbA1c - 8.1 % Strongly advised to work back on portion, carb controlled diet Increase physical activity as tolerated - work on stress management - patient refused to be on any injectable medications and she has intolerance to lot other medications in past - continue current medications - keep checking blood sugars - keep up with good hydration - follow up in 3 months with Blood sugars log Assessment & Plan (01/19/2020 2:53 PM CDT): Poorly controlled, improving Patient reports changes to diet recently, had poor diet due to stress related to 's medical condition Encouraged continue counting of carbohydrates at meals Will recheck A1c in 3 months if still greater than 8 then will add or intensify therapy Assessment & Plan (11/25/2019 9:32 AM CDT): SS coverage Assessment & Plan (10/24/2019 12:50 PM CDT): Chronic, uncontrolled, worsening HbA1c - 9.0 % Poor patient compliance to diet Strongly advised to work back on portion, carb controlled diet Increase physical activity as tolerated Strongly advised to stop drinking regular soda, and replace with plain water - work on stress management - patient refused to be on any injectable medications and she has intolerance to lot other medications in past - Start Pioglitazone 30 mg oral daily - continue rest all medications - keep checking blood sugars - keep up with good hydration - follow up in 3 months with Blood sugars log Assessment & Plan (07/20/2019 10:29 AM CDT): Chronic, worsening Poor compliance to diet and blood sugar monitor Advised to start checking blood sugars at least twice a day before breakfast and before dinner Advised to work on portion control carb controlled diet Increase physical activity as tolerated Advised to continue current medication regimen Also discussed about additional medication options but patient not willing to add any new medication at this time she is willing to work on improving her lifestyle habits Do labs Advised to make an eye doctor appointment Follow-up in 3 months in office Assessment & Plan (08/23/2018 4:04 PM CDT): Moderate elevation of blood sugars: Patient has stopped her Tradjenta on her own. Advise short-term follow-up with Endocrine. Assessment & Plan (07/29/2018 11:48 AM CDT): Diabetes is improving with treatment. A1c - 6.4 % Continue current treatment regimen. Reminded to bring in blood sugar diary at next visit. Dietary recommendations for ADA diet. Regular aerobic exercise. Discussed ways to avoid symptomatic hypoglycemia. Discussed sick day management. Discussed foot care. Reminded to get yearly retinal exam. Diabetes will be reassessed in 3 months. Assessment & Plan (05/01/2018 6:41 PM TUNNEL HEADING INSPECTOR): Diabetes is improving with treatment. A1c today 7.9 % Strongly advised pt to work on improving her lifestyle habits Continue current regimen Gave Januvia samples Continue current treatment regimen. Reminded to bring in blood sugar diary at next visit. Dietary recommendations for ADA diet. Regular aerobic exercise. Discussed ways to avoid symptomatic hypoglycemia. Discussed sick day management. Discussed foot care. Reminded to get yearly retinal exam. Diabetes will be reassessed in 3 months. Assessment & Plan (01/23/2018 7:38 PM CDT): Diabetes is worsening. A1c today - 8.4% - pt stopped taking meds - pt is very sensitive to medications and has lot of drug intolerance - advise to restart glipizide - check BS 2 x daily - before meals - work on diet and exercise - follow up in 3 months with BS log Reminded to bring in blood sugar diary at next visit. Dietary recommendations for ADA diet. Regular aerobic exercise. Discussed ways to avoid symptomatic hypoglycemia. Discussed sick day management. Discussed foot care. Reminded to get yearly retinal exam. Medication changes per orders. Diabetes will be reassessed in 3 months. Assessment & Plan (10/18/2017 9:47 PM CDT): Diabetes is improving with treatment. - A1c today - 7.5 % - reviewed BS log, BS still not yet goal - pt intolerant to multiple meds - advise to work on improving her diet and also advised to increase physical activity as tolerated - advise to keep taking Metformin 1000 mg oral BID - increase Glipizide XL to 5 mg oral BID with meals - advise to keep a check on her BS - follow up in 3 months Reminded to bring in blood sugar diary at next visit. Dietary recommendations for ADA diet. Regular aerobic exercise. Discussed ways to avoid symptomatic hypoglycemia. Discussed sick day management. Discussed foot care. Reminded to get yearly retinal exam. Medication changes per orders. Diabetes will be reassessed in 3 months. Assessment & Plan (07/01/2017 12:32 PM TUNNEL HEADING INSPECTOR): Diabetes is improving with treatment. A1c today 7.8 % Continue current treatment regimen. Reminded to bring in blood sugar diary at next visit. Dietary recommendations for ADA diet. Regular aerobic exercise. Discussed ways to avoid symptomatic hypoglycemia. Discussed sick day management. Discussed foot care. Reminded to get yearly retinal exam. Diabetes will be reassessed in 3 months. Assessment & Plan (05/19/2017 12:44 PM TUNNEL HEADING INSPECTOR): Diabetes is worsening. A1c today - 9.6 % - discussed in detail about overall uncontrolled DM short and penitentiary complications, importance of tight BS control and her A1c and BS target ranges - advise to work on diet and increase physical activity - discussed about importance of daily BS monitoring - discussed about her medication options - intensify oral regimen vs adding basal insulin vs adding GLP -1 agonists - pt. Tried SGLT-2 inhibitors in past - did not tolerate due to recurrent UTI's - pt. Choose to intensify oral regimen - plan to increase Metformin Xr to 1000 mg oral BID - trial of Januvia 100 mg oral daily with breakfast - continue Glipizide XL 2.5 mg oral BID ( pt. Hesitant to increase on this , due to worry of weight gain ) - strongly advised pt. To start checking her BS at least 2 x daily - before breakfast and before dinner - advise to obtain labs soon - follow up in 6 weeks Reminded to bring in blood sugar diary at next visit. Dietary recommendations for ADA diet. Regular aerobic exercise. Discussed ways to avoid symptomatic hypoglycemia. Discussed sick day management. Discussed foot care. Reminded to get yearly retinal exam. Medication changes per orders. Diabetes will be reassessed in 6 weeks. Hypertension associated with diabetes 09/09/2013 Assessment & Plan (09/10/2024 8:53 PM CDT): Stable, well controlled, blood pressure at goal; no chest pain or pressure orthostatics Continue diltiazem 90 mg t.i.d. Assessment & Plan (02/17/2024 1:27 PM CDT): Stable, well controlled, blood pressure at goal; systolic mildly elevated No chest pain or pressure Continue clonidine 0.1 mg b.I.d., diltiazem 90 mg t.I.d., Assessment & Plan (12/30/2023 12:45 PM CDT): Chronic, well controlled Patient on diltiazem and clonidine Assessment & Plan (09/25/2023 9:51 AM CDT): Stable. BP 110/82. Continue to limit salt in diet and take clonidine 0.2 mg b.i.d. Assessment & Plan (08/26/2023 3:29 PM CDT): Stable, well controlled, blood pressure at goal; no chest pain or headaches Continue clonidine 0.2 mg b.i.d., diltiazem 90 mg t.i.d., Assessment & Plan (08/04/2023 11:09 AM CDT): Chronic problem, improved on recheck and she took her meds on the way to the appointment. Continue clonidine, HCTZ. Assessment & Plan (05/09/2023 6:37 PM TUNNEL HEADING INSPECTOR): Currently well controlled Continue current medication regimen Assessment & Plan (02/05/2023 3:18 PM CDT): -BP in office today 110/72 -taking BP at home has been around 120/70s -continue HCTZ and clonidine - BP much better controlled Assessment & Plan (12/30/2022 1:44 PM CDT): Currently well controlled Continue current medication regimen Assessment & Plan (09/08/2022 5:26 PM CDT): Stable, well controlled; blood pressure at target with no chest pain or headaches Continue clonidine 0.2 mg b.i.d., diltiazem 180 mg nightly Assessment & Plan (06/24/2022 10:34 AM TUNNEL HEADING INSPECTOR): Currently well controlled Continue current medication regimen Assessment & Plan (03/01/2022 10:23 AM TUNNEL HEADING INSPECTOR): Stable, well controlled; blood pressure at target Continue clonidine 0.2 mg b.i.d., diltiazem 180 mg nightly, hydrochlorothiazide 25 mg daily Assessment & Plan (02/17/2022 10:56 AM CDT): Currently well controlled Continue current medication regimen Assessment & Plan (11/18/2021 11:27 AM CDT): Currently well controlled Continue current medication regimen Assessment & Plan (08/27/2021 5:05 PM CDT): Stable, well controlled; blood pressure at target today No chest pain of symptoms Patient reports taking clonidine 0.2 mg b.i.d., takes extra dose as needed for elevated blood pressures Continue hydrochlorothiazide 25 mg daily Assessment & Plan (05/21/2021 11:13 AM TUNNEL HEADING INSPECTOR): Currently well controlled Continue current medication regimen Assessment & Plan (04/29/2021 12:40 PM TUNNEL HEADING INSPECTOR): Stable, blood pressure at target; continue diltiazem 180 mg Nightly, hydrochlorothiazide 25 mg daily, metoprolol 50 mg daily Continue to follow with Cardiology Today patient has noted bradycardia; notes some episodes of dizziness and vertigo Encouraged patient to discuss adjustment of medications, including metoprolol given bradycardia Assessment & Plan (12/24/2020 11:27 AM CDT): Recently had hypertensive emergency is admitted developed [facility], noted to have atrial flutter at that time Holding all medications at increase risk of SVTs; the patient reports she continues to have episodes that cause her significant fatigue Patient is scheduled for ablation in December in order to remove recurrent pathway Continue diltiazem on 180 mg daily Assessment & Plan (09/11/2020 1:15 PM CDT): Stable, well controlled at current dose of medications Patient was recently discontinued from losartan due to recurrent UTIs, has had no further UTIs. Medication Continue with clonidine, diltiazem Continue to follow with Cardiology for management of hypertension and CAD Assessment & Plan (08/18/2020 9:43 AM CDT): Currently well controlled Continue current medication regimen Assessment & Plan (03/29/2020 9:42 AM TUNNEL HEADING INSPECTOR): Stable, well controlled Continue current medications Assessment & Plan (02/15/2020 3:14 PM CDT): Currently well controlled Continue current medication regimen Assessment & Plan (01/19/2020 2:53 PM CDT): At target today, on multiple medications for blood pressure control Will continue to monitor and adjust medications Assessment & Plan (11/25/2019 9:33 AM CDT): Cont current meds Assessment & Plan (10/24/2019 12:51 PM CDT): Currently well controlled Continue current medication regimen Assessment & Plan (09/08/2019 4:48 PM CDT): Well controlled today Cont current Assessment & Plan (07/20/2019 10:29 AM CDT): Currently well controlled Continue current medication regimen Assessment & Plan (08/23/2018 4:04 PM CDT): Controlled on current regimen. Assessment & Plan (07/29/2018 11:45 AM CDT): Hypertension is chronic, improving Dietary sodium restriction. Weight loss. Regular aerobic exercise. Continue current medication regimen Blood pressure will be reassessed at the next regular appointment. Assessment & Plan (05/01/2018 6:38 PM TUNNEL HEADING INSPECTOR): Hypertension is chronic, fair controlled Dietary sodium restriction. Weight loss. Regular aerobic exercise. Medication changes per orders. Blood pressure will be reassessed at the next regular appointment. Assessment & Plan (03/11/2018 11:54 PM TUNNEL HEADING INSPECTOR): Hypertension is worsening. Dietary sodium restriction. Weight loss. Regular aerobic exercise. Medication changes per orders. Blood pressure will be reassessed at the next regular appointment. Assessment & Plan (01/23/2018 7:39 PM CDT): Bp well controlled Pt on ARB Assessment & Plan (07/01/2017 12:33 PM TUNNEL HEADING INSPECTOR): Bp well controlled - by diet Pt. Took her self off losartan Will check urine microalbuminuria - if high , then advised pt. That will consider to restart small dose of Losartan Assessment & Plan (05/19/2017 12:38 PM TUNNEL HEADING INSPECTOR): Hypertension is improving with treatment. Continue current treatment regimen. Dietary sodium restriction. Weight loss. Regular aerobic exercise. Blood pressure will be reassessed at the next regular appointment. Hyperlipidemia associated with type 2 diabetes chani daniels 09/09/2013 Assessment & Plan (09/10/2024 8:54 PM CDT): Stable, well controlled, lipids near optimal Encourage low-fat high-fiber diet Continue Leqvio every 6 months Assessment & Plan (02/17/2024 1:27 PM CDT): Stable, well controlled; lipids at goal Continue Zetia 10 mg daily,Leqvio 284 mg every 6 months Assessment & Plan (12/30/2023 12:46 PM CDT): intolerant to statins in past ( tried Lipitor, crestor, pravastatin ) - had severe muscle pains - pt on Zetia Assessment & Plan (09/25/2023 9:53 AM CDT): Continue to limit fats in diet and take Zetia at 10 mg daily Assessment & Plan (08/26/2023 3:30 PM CDT): Stable, well controlled; LDL goal Continue Leqvio 284 mg every 6 months Assessment & Plan (08/04/2023 10:11 AM CDT): Chronic problem, statin intolerant. On Leqvio and Zetia. Assessment & Plan (05/09/2023 6:37 PM TUNNEL HEADING INSPECTOR): intolerant to statins in past ( tried Lipitor, crestor, pravastatin ) - had severe muscle pains - pt on Zetia Assessment & Plan (02/05/2023 3:19 PM CDT): - improvement in LD Lafter starting LeQvio. - continue both ezetimibe and LeQvio Assessment & Plan (12/30/2022 1:44 PM CDT): intolerant to statins in past ( tried Lipitor, crestor, pravastatin ) - had severe muscle pains - pt on Zetia Assessment & Plan (09/08/2022 5:26 PM CDT): Not well controlled, LDL 157; above target of 100; can not tolerate statins Continue Zetia 10 mg daily,Leqvio Assessment & Plan (06/24/2022 10:33 AM TUNNEL HEADING INSPECTOR): intolerant to statins in past ( tried Lipitor, crestor, pravastatin ) - had severe muscle pains - pt on Zetia Assessment & Plan (02/17/2022 10:56 AM CDT): intolerant to statins in past ( tried Lipitor, crestor, pravastatin ) - had severe muscle pains - pt on Zetia Assessment & Plan (11/18/2021 11:27 AM CDT): intolerant to statins in past ( tried Lipitor, crestor, pravastatin ) - had severe muscle pains - pt on Zetia Assessment & Plan (08/27/2021 5:06 PM CDT): Stable, well controlled Continue Zetia 10 mg daily, patient cannot tolerate statin therapy Assessment & Plan (05/21/2021 11:13 AM TUNNEL HEADING INSPECTOR): intolerant to statins in past ( tried Lipitor, crestor, pravastatin ) - had severe muscle pains - pt on Zetia Assessment & Plan (04/29/2021 12:40 PM TUNNEL HEADING INSPECTOR): Stable, does not tolerate statin therapy; continue Zetia 10 mg daily Assessment & Plan (12/24/2020 11:27 AM CDT): Stable, cannot tolerate statin therapy due to side effects Continue Zetia 10 mg daily Assessment & Plan (08/18/2020 9:43 AM CDT): intolerant to statins in past ( tried Lipitor, crestor, pravastatin ) - had severe muscle pains - pt on Zetia Assessment & Plan (03/29/2020 9:45 AM TUNNEL HEADING INSPECTOR): Stable, elevated LDL and total cholesterol Patient is not tolerate statin therapy, currently on Zetia Assessment & Plan (02/15/2020 3:14 PM CDT): intolerant to statins in past ( tried Lipitor, crestor, pravastatin ) - had severe muscle pains - pt on Zetia Assessment & Plan (01/19/2020 2:54 PM CDT): Well controlled based on point of care testing, will continue Zetia Assessment & Plan (11/25/2019 9:33 AM CDT): Cont home meds Assessment & Plan (10/24/2019 12:51 PM CDT): intolerant to statins in past ( tried Lipitor, crestor, pravastatin ) - had severe muscle pains - pt on Zetia Assessment & Plan (09/08/2019 4:50 PM CDT): 09/2018 - total 209; Trig 133; HDL 64; LDL 27 Intolerant of statin And not taking zetia Will review prior records Assessment & Plan (07/20/2019 10:30 AM CDT): intolerant to statins in past ( tried Lipitor, crestor, pravastatin ) - had severe muscle pains - pt on Zetia - recheck lipid panel Assessment & Plan (08/23/2018 4:05 PM CDT): Recheck a lipid profile in the near future Assessment & Plan (07/29/2018 11:46 AM CDT): - LDL - 162 intolerant to statins in past ( tried Lipitor, crestor, pravastatin ) - had severe muscle pains - will to try Zetia Back Assessment & Plan (05/01/2018 6:37 PM TUNNEL HEADING INSPECTOR): - LDL - 188 intolerant to statins in past ( tried Lipitor, crestor, pravastatin ) - had severe muscle pains - also tried Zetia - could not tolerate due to muscle pains - calculated pt. [place] [facility] 10 year risk score of having a heart attack - 2.4 % ( low risk) - previous cath in 12/2013 - showed mild CAD - 30% - will intensify DM control Assessment & Plan (01/23/2018 7:36 PM CDT): - LDL - 188 intolerant to statins in past ( tried Lipitor, crestor, pravastatin ) - had severe muscle pains - also tried Zetia - could not tolerate due to muscle paibs - calculated pt. [place] [facility] 10 year risk score of having a heart attack - 2.4 % ( low risk) - previous cath in 12/2013 - showed mild CAD - 30% - will intensify DM control Assessment & Plan (07/01/2017 12:32 PM TUNNEL HEADING INSPECTOR): - LDL - 188 intolerant to statins in past ( tried Lipitor, crestor, pravastatin ) - had severe muscle pains - also tried Zetia - could not tolerate due to muscle paibs - calculated pt. [place] [facility] 10 year risk score of having a heart attack - 2.4 % ( low risk) - previous cath in 12/2013 - showed mild CAD - 30% - will intensify DM control Assessment & Plan (05/19/2017 12:37 PM TUNNEL HEADING INSPECTOR): intolerant to statins in past ( tried Lipitor, crestor, pravastatin ) - had severe muscle pains - calculated pt. [place] [facility] 10 year risk score of having a heart attack - 2.4 % ( low risk) - previous cath in 12/2013 - showed mild CAD - 30% - will intensify DM control - recheck lipid panel Non-toxic nodular goiter 09/09/2013 Assessment & Plan (05/01/2018 6:40 PM TUNNEL HEADING INSPECTOR): performed a thyroid u/s in office today Noted 2 dominant benign looking cystic nodules in right thyroid lobe Left lobe is very heterogenous , no discrete nodules noted No follow up thyroid u/s needed until physical exam or pt symptoms warrants Assessment & Plan (01/23/2018 7:40 PM CDT): h/o thyroid cyst 7 mm in 2006, repeat u/S in 6-12 months down to 5 mm last thyroid U/s in 11/30/2013 - right lobe - 4.2 X 1.4 X 1.6 cm left thyroid lobe - 3.7 X 1.5 X 1.8 cm - b/l subcentimeter - thyroid cysts - last TSH - 07/2017 - WNL - will recheck thyroid u/s in next follow up visit Assessment & Plan (07/01/2017 12:33 PM TUNNEL HEADING INSPECTOR): h/o thyroid cyst 7 mm in 2006, repeat u/S in 6-12 months down to 5 mm last TSH - 2006 last thyroid U/s in 11/30/2013 - right lobe - 4.2 X 1.4 X 1.6 cm left thyroid lobe - 3.7 X 1.5 X 1.8 cm - b/l subcentimeter - thyroid cysts - check TSH Assessment & Plan (05/19/2017 12:38 PM TUNNEL HEADING INSPECTOR): h/o thyroid cyst 7 mm in 2006, repeat u/S in 6-12 months down to 5 mm last TSH - 2006 last thyroid U/s in 11/30/2013 - right lobe - 4.2 X 1.4 X 1.6 cm left thyroid lobe - 3.7 X 1.5 X 1.8 cm - b/l subcentimeter - thyroid cysts - check TSH Resolved Problems Problem Noted Date Diagnosed Date Resolved Date Thickened endometrium 11/02/20192019 Overview (11/02/2019): Added automatically from request for surgery [id number] Class 1 obesity due to exces s calories with serious comorbidity and body mass index (BMI) of 30.0 to 30.9 in adult 09/08/2019 02/16/2024 Assessment & Plan (02/17/2022 10:56 AM CDT): Counseled on diet and exercise Assessment & Plan (11/18/2021 11:27 AM CDT): Counseled on diet and exercise Assessment & Plan (09/11/2020 1:16 PM CDT): Stable, improving Continue to encourage weight loss through decreased calorie intake and increased activity Assessment & Plan (02/15/2020 3:20 PM CDT): Counseled on diet and exercise Assessment & Plan (01/19/2020 2:54 PM CDT): Encouraged portion control and carbohydrate control for diets, and increase activity 230 minutes 5 times per week Assessment & Plan (10/24/2019 12:51 PM CDT): Chronic, worsening Discussed about healthy lifestyle habits advise to work on healthy diet, avoid processed foods , increase vegetables and protein and cut back on carb portions and also avoid fruit juices and regular soda and desserts Increase physical activity , recommend at least 150 min of aerobic activity per week and include resistance training 2 x weekly Assessment & Plan (09/08/2019 9:53 AM CDT): discussed healthy diet, exercise and adequate sleep Body mass index is 30.73 kg/m . BMI 31.0-31.9,adult 02/10/2019 09/08/19 20 Overview (02/10/2019): BMI Follow-up includes: nutrition counseling, exercise counseling and education provided. BMI 29.0-29.9,adult 08/24/2017 09/08/19 20 Assessment & Plan (08/24/2017 10:57 AM CDT): BMI Follow-up includes: nutrition counseling, exercise counseling and education provided. Pyelonephritis 08/17/2017 09/08/2019 Assessment & Plan (08/24/2017 12:23 PM CDT): Follow-up with Urology, complete antibiotics. Type 2 diabetes mellitus wit h hyperglycemia, with long-term current use of insulin 09/09/2013 Overview (08/01/2016): DMII WO CMP UNCNTRLD Assessment & Plan (03/11/2018 11:51 PM TUNNEL HEADING INSPECTOR): Diabetes is improving with treatment. - increase Basaglar 25 units SQ daily - and increase insulin By 4 units every Week until your blood sugars are > 200 fasting - add Januvia 100 mg oral daily - gave samples Reminded to bring in blood sugar diary at next visit. Dietary recommendations for ADA diet. Regular aerobic exercise. Discussed ways to avoid symptomatic hypoglycemia. Discussed sick day management. Discussed foot care. Reminded to get yearly retinal exam. Medication changes per orders. Diabetes will be reassessed in 6 weeks. Assessment & Plan (08/24/2017 12:23 PM CDT): Moderate elevation of blood sugars: Patient has stopped her Tradjenta on her own. Advise short-term follow-up with Endocrine. Assessment & Plan (05/19/2017 12:34 PM TUNNEL HEADING INSPECTOR): Diabetes is worsening. Reminded to bring in blood sugar diary at next visit. Dietary recommendations for ADA diet. Regular aerobic exercise. Discussed ways to avoid symptomatic hypoglycemia. Discussed sick day management. Discussed foot care. Reminded to get yearly retinal exam. Medication changes per orders. Diabetes will be reassessed in 6 weeks . Hyperlipidemia associated wi th type 2 diabetes mellitus 09/09/2013 09/08/2019 Jaw pain 09/08/2019 Hypertensive urgency 020 Encounters Date Type Department Care Team Description 01/12/2025 9:45 AM CDT Infusion [facility] Non-Oncology Infusion [id number] [place] [id number] Eva Bronson, LIZBETH Arteriosclerosis of coronary artery (Primary Dx) 11/16/2024 10:40 AM CDT - 11/16/2024 11:59 PM CDT Hospital Encounter [facility] [address] [place] [id number] Chronic right shoulder pain Discharge Disposition: Discharge to home or self care 11/16/2024 10:21 AM CDT - 11/16/2024 11:59 PM CDT Hospital Encounter [facility] [address] [place] [phone] Chronic right shoulder pain Discharge Disposition: Discharge to home or self care 11/16/2024 Results [facility] [address] [phone] Fabien Gayle MD MRI Shoulder Right WO Contrast from Last 3 Months Immunizations Immunization Administration Dates Next Due Influenza, Quadrivalent, Hig h Dose, Preservative Free, Intrr 02/05/2023,02/12/2022,01/22/2021,01/18 Influenza, Split 01/19/2013 Influenza, Trivalent, High D ose, Split, Preservative Free, Intramuscular 02/16/2024,02/10/2019,02/20/2018 Influenza, Trivalent, IM (MDV) 02/16/2011 Influenza, Unspecified 02/01/2023(Deferr ed: Patient Refused),01/27/2021,02/20/2018, 018,05/27/2017,01/19/2013,02/16/2011 Pfizer SARS-CoV-2 Monovalent Vaccination (12+ Yrs) PURPLE 01/27/2021,07/03/2020,06/12/2020 Pneumococcal Conjugate PCV 13 04/24/2015, 015 Pneumococcal Polysaccharide PPV23 01/19/2020,,02/18/2011 Tdap 02/10/2019 ZOSTER Recombinant 10/28/2019, 0,06/13/2019,06/13 Surgical History Surgery Date Site/Laterality Comments CHOLECYSTECTOMY 04/26/1989 - 04/25/1990 KIDNEY STONE SURGERY kidney stone removal KNEE ARTHROSCOPY Right CARDIAC CATHETERIZATION MENISCUS SURGERY 04/26/2013 - 04/25/2014 Right COLONOSCOPY 06/10/2011 UPPER GASTROINTESTINAL ENDOSCOPY 12/13/2017 CARPAL TUNNEL RELEASE Bilateral THORACOTOMY Left Benign mass BREAST BIOPSY 03/07/2020 Left US GUIDED BIOPSY LYMPH NODE SUPERFICIAL LEFT 03/07/2020 N/A BREAST LUMPECTOMY 07/25/2020 - 08/23/2020 CARDIAC PACEMAKER PLACEMENT 04/26/2020 - 04/25/2021 HYSTEROSCOPY W/ POLYPECTOMY 11/15/2019 DILATION AND CURETTAGE/HYSTEROSCOPY AND POLYPECTOMY MENISCUS SURGERY 10/11/2023 Medical History Medical History Date Comments Hyperlipidemia Hypertension Calculus of kidney 2009 Type 2 diabetes mellitus Ear problems Macular degeneration Lung mass lung surgery 201 0 GERD (gastroesophageal reflux disease) Irritable bowel syndrome Peptic ulceration Urinary incontinence Osteoarthritis of knee Menopausal vaginal dryness Cystocele with prolapse Breast cancer (HCC) Breast cancer (HCC) 07/2020 Irregular heart beat Sinus node arrhythmia Delayed emergence from gener al anesthesia No history of admission or prolonged stay Motion sickness hx vertigo Sleep apnea per cards note, mild Class 1 obesity due to exces s calories with serious comorbidity and body mass index (BMI) of 30.0 to 30.9 in adult 09/08/2019 Family History Medical History Relation Name Comments Diabetes Father Heart disease Father Heart failure Father Hypertension Father Stroke Father Lung cancer Maternal Grandfather Alzheimer's disease Maternal Grandmother Osteoporosis Maternal Grandmother Diabetes Mother Heart disease Mother Osteoporosis Mother Pancreatic cancer Mother Ovarian cancer Mother's Sister Arthritis Other 1 Family H/O Heart attack Other 1 Family H/O Stroke Other 1 Family H/O Hemophilia Other 2 Grandfather Pancreatic cancer Other 3 Heart disease Paternal Grandfather Heart disease Paternal Grandmother Ovarian cancer Paternal Grandmother Stroke Paternal Grandmother Diabetes type II Sister Anesthesia problems Neg Hx Breast cancer Neg Hx Colon cancer Neg Hx Colon polyps Neg Hx Crohn's disease Neg Hx Ulcerative colitis Neg Hx Uterine cancer Neg Hx Relation Name Status Comments Father (Age 55) Maternal Grandfather Alive Maternal Grandmother Alive Mother (Age 74) Mother's Sister Other 1 Family H/O Alive Other 2 Grandfather Alive Other 3 Paternal Grandfather Alive Paternal Grandmother Alive Sister Alive Social History Tobacco Use Types Packs/Day Years Used Date Smoking Tobacco: Never Smokeless Tobacco: Never Tobacco Cessation:Counseling Given: Not Answered Alcohol Use Standard Drinks/Week Comments No 0 [...] making you feel afraid or unsafe? 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 Not on file Not on file Not on file Obstetrics History Para Term AB IAB SAB Ectopic Multiple Livin g Live Births 2 2 2 2 Date Outcome GA Total Labor Labor/2nd/3rd Weight Sex Type Anes PTL Mago A1 A5 Name Clin 1969 Term 4.224 kg (9 lb 5 oz) M 1972 Term 3.799 kg (8 lb 6 oz) F Last Filed Vital Signs Vital Sign Reading Time Taken Comments Blood Pressure 134/77 01/12/2025 9:50 AM CDT Pulse 81 01/12/2025 9:50 AM CDT Temperature 36.6 C (97.9 F) 01/12/2025 9:50 AM CDT Respiratory Rate 18 01/12/2025 9:50 AM CDT Oxygen Saturation 98% 01/12/2025 9:50 AM CDT Inhaled Oxygen Concentration - - Weight 69.9 kg (154 lb) 11/16/2024 12:27 PM CDT Height 162.6 cm (5' 4) 11/16/2024 12:27 PM CDT Body Mass Index 26.43 11/16/2024 12:27 PM CDT Plan of Treatment Health Maintenance Due Date Last Done Comments Colon Cancer Screening-Colonoscopy 11/02/2021 11/02/2016, 08/11/2013, 06/10/2011 Osteoporosis Screening-Bone Density Scan 09/17/2024 09/17/2022, 09/03/2020, 03/13/2014 Covid-19 Vaccine (2024-2 6 season) 2024 03/23/2022, 01/27/2021, 07/03/2020, Additional history exists Influenza Vaccine (#1) 2024 , 02/05/2023, 02/12/2022, Additional history exists Foot Exam 12/29/2024 12/30/2023, 04/26, 12/30/2022, Additional history exists Hemoglobin A1C 01/05/2025 07/05/2024, 07/2023, 12/30/2023, Additional history exists Depression Screening 02/15/2025 02/16/2024, 08/11/2023, 02/18/2023, Additional history exists Well Visit 65+ 02/15/2025 02/16/2024, 01/24, 02/12/2022, Additional history exists Breast Cancer Screening-Mammogram 03/06/2025 03/06/2024, 03/03/2023, 03/02/2022, Additional history exists Lipid Panel 03/29/2025 03/29/2024, 07/2023, 04/09/2023, Additional history exists eGFR 03/29/2025 03/29/2024, 06/25, 05/15/2023, Additional history exists Albumin Creatinine Ratio, Urine 07/05/2025 07/05/2024, 05/15/2023, 06/24/2022, Additional history exists Fall Risk Assessment 01/12/2026 01/12/2025, 08/30/2024, 06/27/2024, Additional history exists Dilated Eye Exam 05/17/2026 05/17/2024, , 06/12/2021, Additional history exists DTaP/Tdap/Td Vaccine (2 - Td or Tdap) 02/10/2029 02/10/2019 Colon Cancer Screening-CT Colonography Discontinued 11/02/2016, 08/11/2013, 06/10/2011 Colon Cancer Screening-DNA Stool Discontinued 11/02/2016, 08/11/2013, 06/10/2011 Colon Cancer Screening-FIT Discontinued 11/02, 08/11/2013, 06/10/2011 Colon Cancer Screening-Sigmoidoscopy Discontinued 11/02/2016, 08/11/2013, 06/10/2011 Hepatitis C Screening Completed 02/10/2019 Zoster Vaccine Completed 10/28/2019, 07/2019, 06/13/2019, Additional history exists Pneumococcal vaccine 65+ Completed 020, 04/24/2015, 04/24/2015, Additional history exists Hepatitis B Screening Completed 03/29/2024 Medical Devices Implanted Type Area Spa Coordinator Device Identifier Shelf Expiration Date Model / Serial / Lot Bard Peripheral Vascular [id number] Ultraclip Bard 17ga 10cm 2 Trigger Permanent Ultrasound - [id number] - [id number] Implanted:Qty: 1 on 03/07/2020 by Greg Tran MD at [facility] Breast Left: Breast [employer] 11/20/2022 [id number] / [id number] / Bard Peripheral [employer]ascular [id number] Ultraclip Bard 17ga 12cm 2 Trigger Permanent Ultrasound - [id number] - [id number] Implanted:Qty: 1 on 03/07/2020 by Greg Tran MD at [facility] Breast Left: Breast [employer] 05/23/2022 [id number] / [id number] / Description:Left axillary ly mph node clip marker [employer] Edora Promri 57a11v7.5mm Dual Chamber Rate Adaptive Unipolar Bipolar [id number] Chest Wall [employer] [id number] / [id number] / [employer] Active Fixation Steroid Eluting Is 1 Connector Latex Free Sterile Left Ventricular Left Ventricular Solia 45cm [id number] Atria [employer] [id number] / [id number] / [employer] Active Fixation Steroid Eluting Is 1 Connector Latex Free Sterile Atrial Ventricular Atrial Ventricular Solia 53cm 199922 Ventricle [employer] [id number] / [id number] / [employer] Ventilation Myringotomy T Tube Silicone Flange Modified 1.27x6x7.6mm 510-111 - [id number] Implanted:Qty: 1 on 05/21/2023 by Ho Holly MD at [facility] Right: Ear [employer] 12/26/2027 [id number] / / [id number] Procedures Procedure Name Priority Date/Time Associated Diagnosis Comments MRI SHOULDER RIGHT WO CONTRAST Schedule Routine, Read Routine (OP Routine) 11/16/2024 1:08 PM CDT Chronic right shoulder pain XR CHEST PA LATERAL 2 VIEWS Schedule Routine, Read Routine (OP Routine) 11/16/2024 10:57 AM CDT Chronic right shoulder pain POCT HEMOGLOBIN A1C Routine 07/05/2024 10:09 AM CDT Type 2 diabetes mellitus with hyperglycemia, without long-term current use of insulin (HCC) ALBUMIN CREATININE RATIO, URINE Routine 07/05/2024 12:00 AM CDT Type 2 diabetes mellitus with hyperglycemia, without long-term current use of insulin (HCC) HM DIABETES EYE EXAM Routine 05/17/2024 2:35 PM TUNNEL HEADING INSPECTOR EGFR Routine 03/29/2024 8:34 AM TUNNEL HEADING INSPECTOR Hyperlipidemia associated with type 2 diabetes mellitus (HCC) Hypertension associated with diabetes (HCC) LIPID PANEL Routine 03/29/2024 8:34 AM TUNNEL HEADING INSPECTOR SCREENING MAMMOGRAM BILATERAL W MEÑO Schedule Routine, Read Routine (OP Routine) 03/06/2024 9:59 AM TUNNEL HEADING INSPECTOR Encounter for screening mammogram for malignant neoplasm of breast DEXA AXIAL SKELETON BONE DENSITY 1 OR MORE SITES Schedule Routine, Read Routine (OP Routine) 09/17/2022 9:56 AM CDT Age-related osteoporosis without current pathological fracture DIABETIC FOOT EXAM Routine 09/08/2019 HEPATITIS C ANTIBODY Routine 02/10/2019 2:55 PM CDT COLONOSCOPY REPORT 11/02/2016 from Last 3 Months or Most Recently Relevant to Health Maintenance Results * MRI Shoulder Right WO Contrast (11/16/2024 1:08 PM CDT) Anatomical Region Laterality Modality Upper Extremities Right Magnetic Reson ance 11/16/2024 1:34 PM CDT Impressions 11/16/2024 1:34 PM CDT 1. Moderate to severe rotator cuff tendinopathy and partial undersurface tear without MR evidence of full-thickness rotator cuff tear. 2. Moderate acromioclavicular and glenohumeral joint osteoarthritic change. 3. Mild long head biceps tendinopathy. 4. Small glenohumeral joint effusion with small amount of fluid in the subacromial/subdeltoid bursa. 5. Motion degraded study. Electronically signed by: Willy Patel M.D. Narrative 11/16/2024 1:34 PM CDT EXAM: MRI SHOULDER RIGHT WO CONTRAST CLINICAL HISTORY: Right shoulder pain. COMPARISON: None available. TECHNIQUE: Multi-planar, multi-sequence MR imaging of the shoulder was performed. FINDINGS: The overall quality of the examination is degraded by motion artifact. Joint spaces, marrow and cartilage: There is moderate acromioclavicular and glenohumeral joint osteoarthritic change. There is no MR evidence of acute fracture or malalignment. Rotator cuff: There is moderate to severe supraspinatus tendinopathy and partial undersurface tear. There is mild to moderate infraspinatus tendinopathy. The subscapularis and teres minor tendons are intact. There is no MR evidence of full-thickness rotator cuff tear. Biceps tendons: The long and short biceps tendons are intact and in their expected normal location. There is mild long head biceps tendinopathy. Labrum: No gross labral abnormality. Evaluation of the labrum is degraded by motion. Muscles: No muscle signal abnormalities are identified. There is no significant atrophy. Fluid: There is a small glenohumeral joint effusion. There is a small amount of fluid in the subacromial/subdeltoid bursa. Procedure Note Willy Patel MD - 11/16/2024 EXAM: MRI SHOULDER RIGHT WO CONTRAST CLINICAL HISTORY: Right shoulder pain. COMPARISON: None available. TECHNIQUE: Multi-planar, multi-sequence MR imaging of the shoulder was performed. FINDINGS: The overall quality of the examination is degraded by motion artifact. Joint spaces, marrow and cartilage: There is moderate acromioclavicular and glenohumeral joint osteoarthritic change. There is no MR evidence of acute fracture or malalignment. Rotator cuff: There is moderate to severe supraspinatus tendinopathy and partial undersurface tear. There is mild to moderate infraspinatus tendinopathy. The subscapularis and teres minor tendons are intact. There is no MR evidence of full-thickness rotator cuff tear. Biceps tendons: The long and short biceps tendons are intact and in their expected normal location. There is mild long head biceps tendinopathy. Labrum: No gross labral abnormality. Evaluation of the labrum is degraded by motion. Muscles: No muscle signal abnormalities are identified. There is no significant atrophy. Fluid: There is a small glenohumeral joint effusion. There is a small amount of fluid in the subacromial/subdeltoid bursa. IMPRESSION: 1. Moderate to severe rotator cuff tendinopathy and partial undersurface tear without MR evidence of full-thickness rotator cuff tear. 2. Moderate acromioclavicular and glenohumeral joint osteoarthritic change. 3. Mild long head biceps tendinopathy. 4. Small glenohumeral joint effusion with small amount of fluid in the subacromial/subdeltoid bursa. 5. Motion degraded study. Electronically signed by: Willy Patel M.D. us Fabien Gayle MD IMG MRI PROCEDURES Final Result * XR Chest PA Lateral 2 Views (11/16/2024 10:57 AM CDT) Anatomical Region Laterality Modality Body, Chest N/A Computed Radiogr aphy 11/16/2024 11:2 2 AM CDT Impressions 11/16/2024 11:22 AM CDT 1. Dual chamber transvenous pacemaker which follows an expected course without interval change in course. 2. Otherwise negative postoperative chest radiograph. COMMENT: Please see above for additional findings. Electronically signed by: Georges Vigil M.D. Narrative 11/16/2024 11:22 AM CDT XR CHEST PA LATERAL 2 VIEWS HISTORY: Shoulder pain, chronic, instability suspected, xray done PACEMAKER PRECHECK COMPARISON: Lateral chest radiograph 08/24/2023 A chest radiograph in the PA and lateral projections were presented. FINDINGS: A dual chamber transvenous pacemaker is present entering from the left subclavian approach and follows an expected course. The leads are intact and are unchanged in position compared to the previous examination. No abandoned are present. Surgical clips are noted projected in the left breast. Lung sutures are noted in the left lung. There is no evidence of pneumothorax. The osseous structures and chest wall are grossly within expected limits. The mediastinum and david within expected limits. The cardiac silhouette within normal size limits. The lateral and posterior costophrenic angles are preserved bilaterally. No definite infiltrates, suspicious opacities or abnormal interstitial markings are appreciated. There is noted density in the lateral left base unchanged from 08/24/2023 which may represent pleural parenchymal scarring. The included portion of the upper abdomen is within expected limits. Procedure Note Georges Vigil MD - 11/16/2024 XR CHEST PA LATERAL 2 VIEWS HISTORY: Shoulder pain, chronic, instability suspected, xray done PACEMAKER PRECHECK COMPARISON: Lateral chest radiograph 08/24/2023 A chest radiograph in the PA and lateral projections were presented. FINDINGS: A dual chamber transvenous pacemaker is present entering from the left subclavian approach and follows an expected course. The leads are intact and are unchanged in position compared to the previous examination. No abandoned are present. Surgical clips are noted projected in the left breast. Lung sutures are noted in the left lung. There is no evidence of pneumothorax. The osseous structures and chest wall are grossly within expected limits. The mediastinum and david within expected limits. The cardiac silhouette within normal size limits. The lateral and posterior costophrenic angles are preserved bilaterally. No definite infiltrates, suspicious opacities or abnormal interstitial markings are appreciated. There is noted density in the lateral left base unchanged from 08/24/2023 which may represent pleural parenchymal scarring. The included portion of the upper abdomen is within expected limits. IMPRESSION: 1. Dual chamber transvenous pacemaker which follows an expected course without interval change in course. 2. Otherwise negative postoperative chest radiograph. COMMENT: Please see above for additional findings. Electronically signed by: Georges Vigil M.D. Garrick Shane MD IMG XR PROCEDURES Fin al Result * POCT hemoglobin A1c (07/05/2024 10:09 AM CDT) Hemoglobin A1C, POC 7.4 4.0 - 5.6 % Blood 07/05/2024 10:0 9 AM CDT Melvi Burrell MD POINT OF CARE TEST ORDERABLES Final Result * Albumin Creatinine Ratio, Urine (07/05/2024 12:00 AM CDT) Albumin Ur <12.0 mg/L Comment: Interpretive Data No reference range established. Current interpretive data was last revised 2018. Creatinine Ur 60.9 mg/dL BARB[facility] Comment: Interpretive Data No reference range established. Current interpretive data was last revised 2018. Albumin Creatinine Ratio, Ur <20 1 - 29 mg/g [facility] Urine 07/05/2024 07/05/2024 12: 46 PM CDT Melvi Burrell MD LAB URINE ORDERABLE S Final Result BARBRA [id number] [address] Department [place] [address] * DIABETES EYE EXAM (05/17/2024 2:35 PM TUNNEL HEADING INSPECTOR) Historical Provider HEALTH MAINTENANCE Edited Result - Final * eGFR (03/29/2024 8:34 AM TUNNEL HEADING INSPECTOR) eGFR 88 >=60 mL/min/1. 73 m2 Comment: Interpretive Data Reference Interval Normal >/= 90 mL/min/1.73m2 Mildly decreased* 60 - 89 mL/min/1.73m2 Mildly to moderately decreased 45 - 59 mL/min/1.73m2 Moderately to severely decreased 30 - 44 mL/min/1.73m2 Severely decreased 15 - 29 mL/min/1.73m2 Kidney Failure < 15 mL/min/1.73m2 *Relative to young adult level Estimated glomerular filtration rate is determined by the 2020 CKD-EPI equation recommended by the National Kidney Foundation (A Unifying Approach to GFR Estimation: Recommendations of the NKF-ASK Task Force on Reassessing the Inclusion of Race in Diagnosing Kidney Disease, JASN 2020). The CKD-EPI equation should not be used for patients with unstable renal function and has not been validated in children and those over 70. Current interpretive data was last reviewed 2021. Blood 03/29/2024 8:34 AM TUNNEL HEADING INSPECTOR 03/29/2024 9:13 AM TUNNEL HEADING INSPECTOR us Fabien Gayle MD LAB BLOOD ORDERABLES Leslie rubio Result BARBRA QUINTANILLA (BOB) 1 [facility] Department of Laboratories [place], [place] [id number] * (ABNORMAL) Lipid panel (03/29/2024 8:34 AM TUNNEL HEADING INSPECTOR) Cholesterol 185 30 - 199 mg/dL Comment: Interpretive Data Ages < or = 19 years Acceptable: <170 mg/dL Borderline high: 170-199 mg/dL High: >or= 200 mg/dL Ages > or = 20 years Desirable: <200 mg/dL Borderline high: 200-239 mg/dL High: >or= 240 mg/dL Literature References: 1. Expert Panel on Integrated Guidelines for Cardiovascular Health and Risk Reduction in Children and Adolescents. Pediatrics 2011;128:S213 2. NCEP Expert Panel. Circulation 2004;110:227 Current Interpretive Data was last revised on 2017. Triglycerides 153(H) <=149 mg/dL BARBRA QUINTANILLA (BOB) Comment: Interpretive Data Ages < or = 9 years Acceptable: <75 mg/dL Borderline high: 75-99 mg/dL High: >or= 100 mg/dL Ages 10 to 20 years Acceptable: <90 mg/dL Borderline high: 90-129 mg/dL High: >or= 130 mg/dL Ages > or = 20 years Desirable: <150 mg/dL Borderline high: 150-199 mg/dL High: 200-499 mg/dL Very high: >or= 499 mg/dL Literature References: 1. Expert Panel on Integrated Guidelines for Cardiovascular Health and Risk Reduction in Children and Adolescents. Pediatrics 2011;128:S213 2. NCEP Expert Panel. Circulation 2004;110:227 Current Interpretive Data was last revised on 2017. HDL 70 >=40 mg/dL BARBRA QUINTANILLA (BOB) Comment: Interpretive Data Ages < or = 19 years Acceptable: >45 mg/dL Borderline low: 40-45 mg/dL Low: <40 mg/dL Ages > or = 20 years Desirable: >or= 60 mg/dL Low: <40 mg/dL Literature References: 1. Expert Panel on Integrated Guidelines for Cardiovascular Health and Risk Reduction in Children and Adolescents. Pediatrics 2011;128:S213 2. NCEP Expert Panel. Circulation 2004;110:227 Current Interpretive Data was last revised on 2017. LDL, calculated 89 <=129 mg/dL BARBRA HARMON) Comment: Interpretive Data Ages < or = 19 years Acceptable: <110 mg/dL Borderline high: 110-129 mg/dL High: >or= 130 mg/dL Ages > or = 20 years Optimal: <100 mg/dL Near optimal: 100-129 mg/dL Borderline high: 130-159 mg/dL High: >160 mg/dL Calculated using the Willy LDL-C estimating equation. This equation was implemented on 2023. Prior to this date LDL-C was estimated using the Friedewald equation. Literature References: 1. Expert Panel on Integrated Guidelines for Cardiovascular Health and Risk Reduction in Children and Adolescents. Pediatrics 2011;128:S213 2. NCEP Expert Panel. Circulation 2004;110:227 3. Willy Jaime et al. CHELSIE Cardiol. 2019August 24;5(5):540-548. doi: 10.1001/jamacardio.2020.0013 Current Interpretive Data was last revised on 2023. Non-HDL Cholesterol 115 mg/dL BARBRA QUINTANILLA (BOB) Comment: Interpretive Data Ages < or = 19 years Acceptable: <120 mg/dL Borderline high: 120-144 mg/dL High: >145 mg/dL Ages > or = 20 years When triglycerides are >200 mg/dL, Non-HDL cholesterol is a secondary target of therapy with treatment goals that are 30 mg/dL greater than the LDL cholesterol target. Literature References: 1. Expert Panel on Integrated Guidelines for Cardiovascular Health and Risk Reduction in Children and Adolescents. Pediatrics 2011;128:S213 2. NCEP Expert Panel. Circulation 2004;110:227 Current Interpretive Data was last revised on 2017. Chol/HDL ratio 3 MAURI HARMON) Blood 03/29/2024 8:34 AM TUNNEL HEADING INSPECTOR 03/29/2024 9:13 AM TUNNEL HEADING INSPECTOR us Aishwarya Limon MD LAB BLOOD ORDERABLES Final Result BARBRA QUINTANILLA (BOB) 1 [facility] Department of Laboratories [place] [id number] * Screening Mammogram Bilateral W Meño (03/06/2024 9:59 AM TUNNEL HEADING INSPECTOR) Anatomical Region Laterality Modality Breast Bilateral Mammography Impressions 03/06/2024 10:07 AM TUNNEL HEADING INSPECTOR BI-RADS ATLAS category (overall): 2 - Benign There is no mammographic evidence of malignancy. A 1 year screening mammogram is recommended. The patient has been or will be contacted. We recommend annual screening mammography for women at average risk of breast cancer beginning at age 40, based on guidelines of the [place] [employer] (ACR Practice Parameter for the Performance of Screening and Diagnostic Mammography) and [place] [employer]. For women with and elevated risk of breast cancer, please refer to the ACR Practice Parameter for specific screening recommendations. The patient will be entered into a reminder system with a target due date of 1 year for her next screening exam. Narrative 03/06/2024 10:07 AM TUNNEL HEADING INSPECTOR Screening Mammogram Bilateral W Meño: 03/06/24 The study was acquired using full field digital technology and interpreted from soft copy. 2D digital mammographic views, as well as 3D digital tomosynthesis were performed in the CC and MLO projections. CLINICAL: Encounter for screening mammogram for malignant neoplasm of breast. Medical history includes breast cancer. History of breast cancer in Neg Hx. COMPARISONS: 03/03/2023 Screening Mammogram Bilateral W Meño 03/02/2022 Screening Mammogram Bilateral W Meño 02/27/2021 Diagnostic Mammogram Bilateral W Meño 03/07/2020 Mammo Post Clip Placement Left 03/07/2020 US guided breast biopsy left 2020 US Breast Left Limited 2020 Diagnostic Mammogram Left W Meño 02/05/2020 SCREENING MAMMOGRAM BILATERAL W MEÑO 12/13/2018 SCREENING MAMMOGRAM BILATERAL W MEÑO 04/18/2015 DIGITAL MAMMOGRAPHY 03/13/2014 DIGITAL MAMMOGRAPHY BREAST TISSUE: There are scattered areas of fibroglandular density. FINDINGS: There are stable postoperative changes in the left breast. There are unchanged benign calcifications in both breasts. There is no new suspicious finding in either breast on mammogram. us Christopher Fontana MD IMG MAMMO PROCEDURES Final Res ult * Dexa Axial Skeleton Bone Density 1 or 2 Site (09/17/2022 9:56 AM CDT) Anatomical Region Laterality Modality Body N/A Other 09/17/2022 10:3 3 PM CDT Narrative 09/17/2022 10:34 PM CDT EXAM DESCRIPTION: DEXA AXIAL SKELETON BONE DENSITY 1 OR MORE SITES REASON FOR STUDY: 72 y/o year old F with given history of screening. Postmenopausal Spa Coordinator/Model: [employer] SL (S/N [id number]) CLINICAL INFORMATION: Current height: 63.8 inches Maximum height: 64 inches Weight: 171 pounds Risk factors: Postmenopausal, secondary osteoporosis, cancer COMPARISON: 03/13/2014 FINDINGS: AP LUMBAR SPINE L1-L4: Total BMD is 0.832 g/cm2 T-score is -2.0 LEFT HIP: Total BMD is 0.778 g/cm2 T-score is -1.3 Femoral neck BMD is 0.584 g/cm2 T-score is -2.4 FRAX: 10 year risk for a major osteoporotic fracture is 14 %, 10 year risk for a hip fracture is 3.6 % IMPRESSION: Low Bone Mass. REFERENCE: Bone mineral density: Normal (T-score above or = -1.0) Low bone mass (T-score between -1.0 and -2.5) replaces the previously used term osteopenia Osteoporosis (T-score = or below -2.5) Medical evaluation for secondary causes of low bone mineral density may be appropriate. FRAX is a World Health Organization validated fracture risk assessment tool that calculates a person's 10 year probability of a major osteoporosis related fracture and hip fracture. According to the National Osteoporosis Foundation guidelines, postmenopausal women and men age 50 or older with low bone mass and a 10 year probability of a major osteoporosis related fracture = or greater than 20% or a 10 year probability of a hip fracture = or greater than 3% should be considered for treatment. For further information, including treatment recommendations, please refer to the 2019 ISCD Official Positions (http://www.iscd.org) and the NOF's Clinician's Guide to Prevention and Treatment of Osteoporosis (http://www.nof.org/professionals/clinical-guidelines) THIS IS AN ELECTRONICALLY VERIFIED FINAL REPORT 09/17/2022 10:34 PM - Electronically signed by Christopher Castellon M.D. MF: [email or web address] Report ID: [id number] Reading Location: [id number] Procedure Note Christopher Castellon MD - 09/17/2022 EXAM DESCRIPTION: DEXA AXIAL SKELETON BONE DENSITY 1 OR MORE SITES REASON FOR STUDY: 72 y/o year old F with given history of screening. Postmenopausal Spa Coordinator/Model: [employer] (S/N [id number]) CLINICAL INFORMATION: Current height: 63.8 inches Maximum height: 64 inches Weight: 171 pounds Risk factors: Postmenopausal, secondary osteoporosis, cancer COMPARISON: 03/13/2014 FINDINGS: AP LUMBAR SPINE L1-L4: Total BMD is 0.832 g/cm2 T-score is -2.0 LEFT HIP: Total BMD is 0.778 g/cm2 T-score is -1.3 Femoral neck BMD is 0.584 g/cm2 T-score is -2.4 FRAX: 10 year risk for a major osteoporotic fracture is 14 %, 10 year risk for ahip fracture is 3.6 % IMPRESSION: Low Bone Mass. REFERENCE: Bone mineral density: Normal (T-score above or = -1.0) Low bone mass (T-score between -1.0 and -2.5) replaces thepreviously used term osteopenia Osteoporosis (T-score = or below -2.5) Medical evaluation for secondary causes of low bone mineral density may be appropriate. FRAX is a World Health Organization validated fracture risk assessmenttool that calculates a person's 10 year probability of a major osteoporosisrelated fracture and hip fracture. According to the National OsteoporosisFoundation guidelines, postmenopausal women and men age 50 or older with low bonemass and a 10 year probability of a major osteoporosis related fracture = or greater than 20% or a 10 year probability of a hip fracture = or greaterthan 3% should be considered for treatment. For further information, including treatment recommendations, please referto the 2019 ISCD Official Positions (http://www.iscd.org) and the NOF's Clinician's Guide to Prevention and Treatment of Osteoporosis (http://www.nof.org/professionals/clinical-guidelines) THIS IS AN ELECTRONICALLY VERIFIED FINAL REPORT 09/17/2022 10:34 PM - Electronically signed by Christopher Castellon M.D. MF: [email or web address] Report ID: [id number] Reading Location: [place] [address] us Tyler Esparza DO IMG DXA PROCEDURES Final Res ult * (ABNORMAL) Diabetic Foot Exam (09/08/2019) us Historical Provider HEALTH MAINTENANCE Final Result * Hepatitis C antibody (02/10/2019 2:55 PM CDT) Hep C Ab NON-REACT LAQUITA NON-REACT LAQUITA [facility] [place] SIGNAL TO CUT-OFF 0.00 <1.00 [facility] [place] Comment: HCV antibody was non-reactive. There is no laboratory evidence of HCV infection. In most cases, no further action is required. However, if recent HCV exposure is suspected, a test for HCV RNA (test code 16805) is suggested. For additional information please refer to http://education.TeleDNA/faq/KMJ11z0 (This link is being provided for informational/ educational purposes only.) 02/10/2019 2:55 PM CDT 02/11/2019 4:37 AM CDT Narrative Resulting Agency Comment Performing Organization Information: Site ID: [place] Name: [facility] Address: [address] [place] [address] [place] [address] Director: Dequan Wright D.O., MPH us Jarrell Severino MD LAB MICROBIOLOGY - GENERAL ORDERABLES Final Result [email or web address] - [place] * COLONOSCOPY REPORT (11/02/2016) Anatomical Region Laterality Modality Other Provider Scanning GI PROCEDURE ORDERABLES Final Result from Last 3 Months or Most Recently Relevant to Health Maintenance Insurance MEDICARE [facility] MEDICARE [facility] Advance Directives For more information, please contact: [phone] Documents on File Type Date Recorded Patient Extension Service Agent Expl anation Power of Mold Swabber 05/21/2023 5:41 AM Advance Directives and Living Will 05/21/2023 5:39 AM ADVANCE DIRECTIVE 03/16/2022 10:57 AM Mago ing Will ADVANCE DIRECTIVE 03/16/2022 10:57 AM Pow er of Mold Swabber-Medical * Full Code (Latest Code Status on File) Date Activated Date Inactivated Comments 11/25/2019 3:52 AM 11/25/2019 9:18 PM * Full Code Date Activated Date Inactivated Comments 05/01/2019 6:42 AM 05/02/2019 12:57 AM * Full Code Date Activated Date Inactivated Comments 08/17/2017 7:47 PM 08/18/2017 6:15 PM * Full Code Date Activated Date Inactivated Comments 08/17/2017 5:53 AM 08/17/2017 7:47 PM Care Teams Collections Manager Relationship Specialty Start Date End Date Fabien Gayle MD [address] [place] [address] PCP - General Family Medicine 01/23/22 Cyndee Lee MD Consulting Physician Gastroenterology 08/18/17 Deejay Cuellar MD [address] [place] [address] [place] [address] Chocolate Dipper Obstetrics and Gynecology 11/15/19 Tyler Esparza DO [address] [place] [address] Medical Oncologist/Hematologis t Hematology and Oncology 06/10/20 Demarcus Beckett MD [address] [place] [address] [phone] Surgeon Surgery 09/25/21 Christopher Fontana MD [address] [place] [address] [phone] Surgeon General Surgery 10/01/22 Mana Ma MD [address] [place] [address] [id number] Radiation Oncologist Radiation Oncology 08/24/23
--- OUTSIDE RECORDS SUMMARY | 2025-01-15 12:47 | XMS_ITS ---
Author Organization [facility]ly [facility] Address [address] [place] [address] Care Team Providers Care Meal Packer Name Role Phone Cyndee Lee MD Unavailable [phone] Deejay Cuellar MD Unavailable [phone] Tyler Esparza DO Unavailable [phone] Demarcus Beckett MD Unavailable [phone] Fabien Gayle MD Primary Care Provider [phone] Christopher Fontana MD Unavailable [phone] Mana Ma MD Unavailable [phone] Active Problems Problem Noted Date Diagnosed Date [...] supplements Assessment & Plan (03/01/2022 10:25 AM ADDICTION SPECIALIST): Cannot tolerate bisphosphonate; encouraged regular activity and exercise, given guidance on calcium and vitamin-D targets daily Assessment & Plan (08/27/2021 5:07 PM CDT): Stable, generally well controlled; patient is on Femara for breast cancer Continue alendronate 70 mg weekly, calcium and vitamin-D supplementation Assessment & Plan (04/29/2021 12:43 PM ADDICTION SPECIALIST): Patient has known osteopenia, currently on Humira; [...] from 07/05/2020:Stage IA(cT1b, cN0(sn), cM0, G1, ER+, MN+, HER2-) - Signed by Tyler Esparza DO [...] recommendations Assessment & Plan (03/29/2020 9:48 AM ADDICTION SPECIALIST): Patient has follow-up scheduled for lumpectomy and radiation therapy at [facility] Rectocele 02/14/2020 RBBB 01/24/2020 Right chronic serous [...] (01/19/2020): Added automatically from request for surgery [id number] Resolved : had D&C Uterine polyp 11/02/2019 Overview (11/02/2019): Added automatically from request for surgery [id number] Atherosclerosis of aorta ([facility]/H[facility]) 09/08/2019 Assessment & Plan (02/17/2024 1:28 PM [...] 09/08/2019 Assessment & Plan (06/08/2022 2:43 PM ADDICTION SPECIALIST): Frit tid, levsinSL in am ands prn. [...] 12/29/2018 Assessment & Plan (03/30/2019 11:28 AM ADDICTION SPECIALIST): Obtain pelvic US If abnl noted, conisder [...] 12/29/2018 Assessment & Plan (03/30/2019 11:28 AM ADDICTION SPECIALIST): -UA dip in office was WNL Continue [...] 08/17/2017 Assessment & Plan (04/29/2021 12:42 PM ADDICTION SPECIALIST): Stable, not well controlled; patient has history [...] control Assessment & Plan (03/01/2022 10:24 AM ADDICTION SPECIALIST): Stable, follows with Cardiology for evaluation management [...] symptoms. Assessment & Plan (04/29/2021 12:42 PM ADDICTION SPECIALIST): Stable, continue pantoprazole 40 mg daily Assessment [...] longer. Assessment & Plan (05/09/2023 6:40 PM ADDICTION SPECIALIST): Chronic, uncontrolled worsening A1c 9.4 % Counseled on diet and exercise Finish trulicity home supply Than start taking Mounjaro 2.5 mg SQ weekly for 4 weeks than increase to 5 mg SQ weekly Labs soon at [facility] Schedule for diabetic eye exam as [...] b.i.d., Assessment & Plan (06/24/2022 10:33 AM ADDICTION SPECIALIST): Chronic, uncontrolled, worsening Frequent steroid knee injections A1c 8.1% - patient [id number] cost for Januvia is very high as [...] months Assessment & Plan (03/22/2022 6:05 PM ADDICTION SPECIALIST): Chronic, uncontrolled, unchanged HbA1c - 7.8 % Pt denies hypoglycemia counseled on diet and exercise - continue current Medications - keep checking blood sugars - keep up with good hydration - advised to make an eye exam appointment soon - daily foot care - follow up in 3 months with Blood sugars log Assessment & Plan (03/01/2022 10:24 AM ADDICTION SPECIALIST): Stable, fairly well controlled, though has elevated [...] b.i.d. Assessment & Plan (05/21/2021 11:14 AM ADDICTION SPECIALIST): Chronic, Overall well controlled for pt age [...] log Assessment & Plan (04/29/2021 12:41 PM ADDICTION SPECIALIST): Stable well controlled; A1c today is 7.1 [...] mg, metformin 500 mg 20 hour tablet, Leticia A1c is at target Assessment & Plan [...] log Assessment & Plan (06/04/2020 2:02 PM ADDICTION SPECIALIST): Has been up and down, will continue to limit carbohydrates Assessment & Plan (03/29/2020 9:42 AM ADDICTION SPECIALIST): Worsening, not well controlled Patient has multiple [...] months. Assessment & Plan (05/01/2018 6:41 PM ADDICTION SPECIALIST): Diabetes is improving with treatment. A1c today [...] months. Assessment & Plan (07/01/2017 12:32 PM ADDICTION SPECIALIST): Diabetes is improving with treatment. A1c today 7.8 % Continue current treatment regimen. Reminded to bring in blood sugar diary at next visit. Dietary recommendations for ADA diet. Regular aerobic exercise. Discussed ways to avoid symptomatic hypoglycemia. Discussed sick day management. Discussed foot care. Reminded to get yearly retinal exam. Diabetes will be reassessed in 3 months. Assessment & Plan (05/19/2017 12:44 PM ADDICTION SPECIALIST): Diabetes is worsening. A1c today - 9.6 % - discussed in detail about overall uncontrolled DM short and fdc complications, importance of tight BS control and [...] HCTZ. Assessment & Plan (05/09/2023 6:37 PM ADDICTION SPECIALIST): Currently well controlled Continue current medication regimen [...] nightly Assessment & Plan (06/24/2022 10:34 AM ADDICTION SPECIALIST): Currently well controlled Continue current medication regimen Assessment & Plan (03/01/2022 10:23 AM ADDICTION SPECIALIST): Stable, well controlled; blood pressure at target [...] daily Assessment & Plan (05/21/2021 11:13 AM ADDICTION SPECIALIST): Currently well controlled Continue current medication regimen Assessment & Plan (04/29/2021 12:40 PM ADDICTION SPECIALIST): Stable, blood pressure at target; continue diltiazem 180 mg Nightly, hydrochlorothiazide 25 mg daily, metoprolol 50 mg daily Continue to follow with Cardiology Today patient has noted bradycardia; notes some episodes of dizziness and vertigo Encouraged patient to discuss adjustment of medications, including metoprolol given bradycardia Assessment & Plan (12/24/2020 11:27 AM CDT): Recently had hypertensive emergency is admitted developed [facility], noted to have atrial flutter at that [...] regimen Assessment & Plan (03/29/2020 9:42 AM ADDICTION SPECIALIST): Stable, well controlled Continue current medications Assessment [...] appointment. Assessment & Plan (05/01/2018 6:38 PM ADDICTION SPECIALIST): Hypertension is chronic, fair controlled Dietary sodium restriction. Weight loss. Regular aerobic exercise. Medication changes per orders. Blood pressure will be reassessed at the next regular appointment. Assessment & Plan (03/11/2018 11:54 PM ADDICTION SPECIALIST): Hypertension is worsening. Dietary sodium restriction. Weight loss. Regular aerobic exercise. Medication changes per orders. Blood pressure will be reassessed at the next regular appointment. Assessment & Plan (01/23/2018 7:39 PM CDT): Bp well controlled Pt on ARB Assessment & Plan (07/01/2017 12:33 PM ADDICTION SPECIALIST): Bp well controlled - by diet Pt. Took her self off losartan Will check urine microalbuminuria - if high , then advised pt. That will consider to restart small dose of Losartan Assessment & Plan (05/19/2017 12:38 PM ADDICTION SPECIALIST): Hypertension is improving with treatment. Continue current [...] Zetia. Assessment & Plan (05/09/2023 6:37 PM ADDICTION SPECIALIST): intolerant to statins in past ( tried [...] daily,Leqvio Assessment & Plan (06/24/2022 10:33 AM ADDICTION SPECIALIST): intolerant to statins in past ( tried [...] therapy Assessment & Plan (05/21/2021 11:13 AM ADDICTION SPECIALIST): intolerant to statins in past ( tried Lipitor, crestor, pravastatin ) - had severe muscle pains - pt on Zetia Assessment & Plan (04/29/2021 12:40 PM ADDICTION SPECIALIST): Stable, does not tolerate statin therapy; continue [...] Zetia Assessment & Plan (03/29/2020 9:45 AM ADDICTION SPECIALIST): Stable, elevated LDL and total cholesterol Patient [...] Back Assessment & Plan (05/01/2018 6:37 PM ADDICTION SPECIALIST): - LDL - 188 intolerant to statins in past ( tried Lipitor, crestor, pravastatin ) - had severe muscle pains - also tried Zetia - could not tolerate due to muscle pains - calculated pt. [place] CHD 10 year risk score of having [...] due to muscle paibs - calculated pt. [place] CHD 10 year risk score of having a heart attack - 2.4 % ( low risk) - previous cath in 12/2013 - showed mild CAD - 30% - will intensify DM control Assessment & Plan (07/01/2017 12:32 PM ADDICTION SPECIALIST): - LDL - 188 intolerant to statins in past ( tried Lipitor, crestor, pravastatin ) - had severe muscle pains - also tried Zetia - could not tolerate due to muscle paibs - calculated pt. [place] CHD 10 year risk score of having a heart attack - 2.4 % ( low risk) - previous cath in 12/2013 - showed mild CAD - 30% - will intensify DM control Assessment & Plan (05/19/2017 12:37 PM ADDICTION SPECIALIST): intolerant to statins in past ( tried Lipitor, crestor, pravastatin ) - had severe muscle pains - calculated pt. 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 Assessment & Plan (05/01/2018 6:40 PM ADDICTION SPECIALIST): performed a thyroid u/s in office today [...] visit Assessment & Plan (07/01/2017 12:33 PM ADDICTION SPECIALIST): h/o thyroid cyst 7 mm in 2006, repeat u/S in 6-12 months down to 5 mm last TSH - 2006 last thyroid U/s in 11/30/2013 - right lobe - 4.2 X 1.4 X 1.6 cm left thyroid lobe - 3.7 X 1.5 X 1.8 cm - b/l subcentimeter - thyroid cysts - check TSH Assessment & Plan (05/19/2017 12:38 PM ADDICTION SPECIALIST): h/o thyroid cyst 7 mm in 2006, repeat u/S in 6-12 months down to 5 mm last TSH - 2006 last thyroid U/s in 11/30/2013 - right lobe - 4.2 X 1.4 X 1.6 cm left thyroid lobe - 3.7 X 1.5 X 1.8 cm - b/l subcentimeter - thyroid cysts - check TSH Current Treatment and Therapy Plans No current plan information found. Other Current Plans INCLISIRAN (LEQVIO) INJECTION* Plan Start Date:06/27/2024 Plan Provider:Aishwarya Limon MD Linked Problems Arteriosclerosis of coronary artery Treatment Medications No medications scheduled. Past Treatment and Therapy Plans No past plan information found. Radiation Treatments * Course [id number]/08/2020 - 07/26/2020 Treatment Period Energy Fraction Dose Fractions Total Dose Plans Planned LEFT BREAST 07/08/2020 - 07/26/2020 267 15 4,005 Reference Points Delivered PTV_EVAL DPV 07/08/2020 - 07/26/2020 4,005 Lifetime Dose Tracking * Chemical Lifetime Dose Automatic Entry Manual Entr y DLP 149 mGycm 149 mGycm 0 mGycm Resolved Problems Problem Noted Date Diagnosed Date Resolved Date Thickened endometrium 11/02/20192019 Overview (11/02/2019): Added automatically from request for surgery [id number] Class 1 obesity due to exces s [...] 30.73 kg/m . BMI 31.0-31.9,adult 02/10/2019 09/08/19 Overview (02/10/2019): BMI Follow-up includes: nutrition counseling, [...] UNCNTRLD Assessment & Plan (03/11/2018 11:51 PM ADDICTION SPECIALIST): Diabetes is improving with treatment. - increase [...] Endocrine. Assessment & Plan (05/19/2017 12:34 PM ADDICTION SPECIALIST): Diabetes is worsening. Reminded to bring in [...]
--- OUTSIDE RECORDS SUMMARY | 2025-01-15 12:47 | XMS_ITS | Encounter Summary ---
Author Organization [facility] Address [address] [place] [address] Care Team Providers Care Status Controller Name Role Phone Cyndee Lee MD Unavailable [phone] Bethany Hunter MD Primary Care Provider [phone] Deejay Cuellar MD Unavailable [phone] Fabien Gayle MD Primary Care Provider [phone] Fabien Gayle MD Primary Care Provider [phone] Fabien Gayle MD Primary Care Provider [phone] Tyler Esparza DO Unavailable [phone] Fabien Gayle MD Primary Care Provider [phone] Fabien Gayle MD Primary Care Provider [phone] Mana Ma MD Unavailable [phone] Demarcus Beckett MD Unavailable [phone] Bethany Hunter MD Primary Care Provider [phone] Fabien Gayle MD Primary Care Provider [phone] Christopher Fontana MD Unavailable [phone] Mana Ma MD Unavailable [phone] Encounter Details Date Type Department Care Team (Late st Contact Info) Description 12/27/2019 Telephone [facility] [address] [place] [address] Harvinder Taylor, RT Social History Tobacco Use Types Packs/Day Years Used Date Smoking Tobacco: Never Smokeless Tobacco: Never Alcohol Use Standard Drinks/Week Comments No 0 (1 standard drink = 0.6 oz pur e alcohol) PHQ-2 Answer Date Recorded PHQ-2 Score 0 12/15/2018 Comments No Sex and Gender Information Value Date Recorded Sex Assigned at Not on file Legal Sex Female 2:18 PM [employer] Gender Identity Not on file Sexual Orientation Not on file documented as of this encounter Plan of Treatment Not on file documented as of this encounter Visit Diagnoses Not on filedocumented in this encounter Additional Health Concerns Infection Onset Date Last Indicated Resolved Time COVID: Suspected 08/16/2022 08/16/2022 08/16/2022 3:30 PM CDT documented as of this encounter Care Teams Status Controller Relationship Specialty [place] [address] [address] PCP - General Family Medicine 09/08/19 01/18/20 Fabien Gayle MD [address] [place] [address] PCP - General Family Medicine 01/19/20 04/24/20 Fabien Gayle MD [address] [place] [id number] PCP - General 04/25/20 05/09/20 Fabien Gayle MD [address] [place] [address] PCP - General Family Medicine 05/10/20 06/26/20 Fabien Gayle MD [address] [place] [id number] PCP - General 06/27/20 08/18/20 Fabien Gayle MD [address] [place] [address] PCP - General Family Medicine 08/19/20 01/11/22 [place] [address] [address] PCP - General 01/12/22 01/22/22 Fabien Gayle MD [address] [place] [address] PCP - General Family Medicine 01/23/22 Cyndee Lee MD Consulting Physician Gastroenterology 08/18/17 Deejay Cuellar MD [address] [place] [address] Medical Office Assistant Obstetrics and Gynecology 11/15/19 Tyler Esparza DO [address] [place] [address] [id number] Medical Oncologist/Hematologis t Hematology and Oncology 06/10/20 Mana Ma MD [address] [place] [address] [id number] Radiation Oncologist Radiation Oncology 09/25/21 Demarcus Beckett MD [address] [place] [address] Surgeon Surgery 09/25/21 Christopher Fontana MD [facility] [address] [place], [place] [phone] Surgeon General Surgery 10/01/22 Mana Ma MD [address] [place] [address] [address] [place], [place] 376[address] Radiation Oncologist Radiation Oncology 08/24/23 documented as of this encounter
== END 2025-01-15 11:54 | disposition home or self-care (01) ==
PROVIDERS: PCP Hospitalist; Visit Provider Orthopaedic Surgery
DX: M17.11 Unilateral primary osteoarthritis, right knee (principal)
CPT/HCPCS: 73564